=== PATIENT | female | born 1960 | race Caucasian/White ===

== ENCOUNTER 2020-05-25 18:53 | Inpatient (IN) | payer BC, OTHER ==
--- NOTE | 2020-05-25 19:47 | EDM.PDOC ---
ED HPI GENERAL MEDICAL PROBLEM - General Chief Complaint: Respiratory Problem Stated Complaint: COVID Time Seen by Provider: 05/25/20 19:43 - History of Present Illness INITIAL COMMENTS - FREE TEXT/NARRATIVE: 59-year-old female presents the emergency room in a known positive COVID state. Today the patient became more short of breath and ran a fever little higher than 103 at home. She has a little bit of a cough mostly nonproductive that she is noticed some intermittent vomiting and loose stools. She believes the vomiting is secondary to postnasal drip. Overall her most annoying symptom is her postnasal drip. Is currently treated for diabetes hyperlipidemia hypothyroidism and depression. Headache Pain Score (Numeric/FACES): 2 - Related Data Allergies Allergy/AdvReac Type Severity Reaction Status Date / Time enalaprilat [From Vasotec] Allergy Severe Cough Verified 05/25/20 19:22 Home Meds: Home Meds Allopurinol [Zyloprim] 100 mg PO DAILY 05/25/20 [History] Aspirin [Aspirin EC] 162 mg PO DAILY 05/25/20 [History] DULoxetine [Cymbalta] 60 mg PO DAILY 05/25/20 [History] Empagliflozin [Jardiance] 25 mg PO DAILY 05/25/20 [History] Levothyroxine [Synthroid] 100 mcg PO DAILY 05/25/20 [History] Liraglutide [Victoza] 1.8 ml INJECT DAILY 05/25/20 [History] Losartan/Hydrochlorothiazide [Losartan-HCTZ 50-12.5 MG] 1 tab PO DAILY 05/25/20 [History] Rosuvastatin [Crestor] 10 mg PO DAILY 05/25/20 [History] metFORMIN [Glucophage XR] 1,000 mg PO BID 05/25/20 [History] Past Medical History Cardiovascular History: Reports: High Cholesterol, Hypertension Musculoskeletal History: Reports: Fibromyalgia, Gout Endocrine/Metabolic History: Reports: Diabetes, Type II, Hypothyroidism - Infectious Disease History Infectious Disease History: Reports: Chicken Pox, Measles, Rubella, Shingles - Past Surgical History Cardiovascular Surgical History: Reports: Other (See Below) Other Cardiovascular Surgeries/Procedures: caraotoid test done recently Female Surgical History: Reports: Tubal Ligation Social & Family History - Tobacco Use Tobacco Use Status *Q: Never Tobacco User - Caffeine Use Caffeine Use: Reports: Soda Other Caffeine Use: diet - Recreational Drug Use Recreational Drug Use: No ED ROS GENERAL - Review of Systems Review Of Systems: See Below Constitutional: Reports: Fever, Chills, Weakness HEENT: Reports: Rhinitis, Sinus Problem Respiratory: Reports: Shortness of Breath, Cough. Denies: Pleuritic Chest Pain Cardiovascular: Denies: Chest Pain Endocrine: Reports: No Symptoms GI/Abdominal: Reports: Diarrhea, Nausea, Vomiting : Reports: No Symptoms Musculoskeletal: Reports: No Symptoms Skin: Reports: No Symptoms Neurological: Reports: No Symptoms ED EXAM, GENERAL - Physical Exam Exam: See Below Exam Limited By: No Limitations General Appearance: Alert, No Apparent Distress, Other (Her O2 saturation is in the mid to upper 80s on room air she is doing well on 2 L at this time. Mildly tachycardic. She gets a little lightheaded when standing and is orthostatic) Eye Exam: Bilateral Eye: Normal Inspection Ears: Normal External Exam, Normal Canal, Hearing Grossly Normal, Normal TMs Nose: Normal Inspection, Normal Mucosa, No Blood Throat/Mouth: Normal Inspection, Normal Lips, Normal Teeth, Normal Gums, Normal Oropharynx, Normal Voice, No Airway Compromise Head: Atraumatic, Normocephalic Neck: Normal Inspection, Supple. No: Lymphadenopathy (L), Lymphadenopathy (R) Respiratory/Chest: No Respiratory Distress, Crackles (Diffuse fine crackles right lateral chest) Cardiovascular: Regular Rate, Rhythm, No Edema, No Murmur GI/Abdominal: Normal Bowel Sounds, Soft, Non-Tender Back Exam: Normal Inspection. No: CVA Tenderness (L), CVA Tenderness (R) Psychiatric: Normal Affect, Normal Mood Skin Exam: Warm, Dry, Intact Course - Vital Signs Last Recorded V/S: Last Vital Signs Temp 37.8 C 05/25/20 19:29 Pulse 113 H 05/25/20 19:29 Resp 20 05/25/20 19:29 BP 127/63 05/25/20 19:29 Pulse Ox 88 L 05/25/20 19:29 - Orders/Labs/Meds Orders: Active Orders 24 hr Category Date Time Status EKG Documentation Completion [RC] STAT Care 05/25/20 19:44 Active Chest 1V Frontal [CR] Stat Exams 05/25/20 19:44 Ordered CBC WITH MANUAL DIFF [HEME] Stat Lab 05/25/20 20:08 Results Isolation [COMM] Routine Ot 05/25/20 19:46 Ordered Labs: Laboratory Tests 05/25/20 05/25/20 05/25/20 Range/Units 20:08 20:08 20:08 WBC 3.32 L (3.98-10.04) K/mm3 RBC 4.23 (3.98-5.22) M/mm3 Hgb 12.3 (11.2-15.7) gm/dl Hct 38.7 (34.1-44.9) % MCV 91.5 (79.4-94.8) fl MCH 29.1 (25.6-32.2) pg MCHC 31.8 L (32.2-35.5) g/dl RDW Std Deviation 48.3 H (36.4-46.3) fL Plt Count 84 L (182-369) K/mm3 MPV 11.9 (9.4-12.3) fl PT 12.0 H (9.7-11.7) SECONDS INR 1.12 D-Dimer, Quantitative 1.12 H (0.19-0.50) mg/L Sodium 135 L (136-145) mEq/L Potassium 4.1 (3.5-5.1) mEq/L Chloride 99 (98-107) mEq/L Carbon Dioxide 25 (21-32) mEq/L Anion Gap 15.1 H (5-15) BUN 12 (7-18) mg/dL Creatinine 1.0 (0.55-1.02) mg/dL Est Cr Clr Drug Dosing 55.31 mL/min Estimated GFR (MDRD) 56 (>60) mL/min BUN/Creatinine Ratio 12.0 L (14-18) Glucose 106 (80-115) mg/dL Calcium 8.2 L (8.5-10.1) mg/dL Ferritin (8-252) ng/ml Total Bilirubin 1.0 (0.2-1.0) mg/dL AST 82 H (15-37) U/L ALT 54 (14-59) U/L Alkaline Phosphatase 172 H (46-116) U/L Lactate Dehydrogenase 347 H (81-234) U/L Troponin I 0.031 (0.00-0.056) ng/mL C-Reactive Protein 2.4 H* (<1.0) mg/dL NT-Pro-B Natriuret Pep (0-125) pg/mL Total Protein 7.1 (6.4-8.2) g/dl Albumin 2.9 L (3.4-5.0) g/dl Globulin 4.2 gm/dL Albumin/Globulin Ratio 0.7 L (1-2) 05/25/20 05/25/20 Range/Units 20:08 20:08 WBC (3.98-10.04) K/mm3 RBC (3.98-5.22) M/mm3 Hgb (11.2-15.7) gm/dl Hct (34.1-44.9) % MCV (79.4-94.8) fl MCH (25.6-32.2) pg MCHC (32.2-35.5) g/dl RDW Std Deviation (36.4-46.3) fL Plt Count (182-369) K/mm3 MPV (9.4-12.3) fl PT (9.7-11.7) SECONDS INR D-Dimer, Quantitative (0.19-0.50) mg/L Sodium (136-145) mEq/L Potassium (3.5-5.1) mEq/L Chloride (98-107) mEq/L Carbon Dioxide (21-32) mEq/L Anion Gap (5-15) BUN (7-18) mg/dL Creatinine (0.55-1.02) mg/dL Est Cr Clr Drug Dosing mL/min Estimated GFR (MDRD) (>60) mL/min BUN/Creatinine Ratio (14-18) Glucose (80-115) mg/dL Calcium (8.5-10.1) mg/dL Ferritin 437 H (8-252) ng/ml Total Bilirubin (0.2-1.0) mg/dL AST (15-37) U/L ALT (14-59) U/L Alkaline Phosphatase (46-116) U/L Lactate Dehydrogenase (81-234) U/L Troponin I (0.00-0.056) ng/mL C-Reactive Protein (<1.0) mg/dL NT-Pro-B Natriuret Pep 119 (0-125) pg/mL Total Protein (6.4-8.2) g/dl Albumin (3.4-5.0) g/dl Globulin gm/dL Albumin/Globulin Ratio (1-2) - Re-Assessments/Exams Free Text/Narrative Re-Assessment/Exam: 05/25/20 21:[address] Dalal, our hospitalist with the work-up incomplete however with her hypoxia and risk factors the patient will be placed in the hospital. He would like us to hold off on IV fluids until he has reviewed all the labs. Departure - Departure Time of Disposition: 21:10 Disposition: Admitted As Inpatient 64 Clinical Impression: COVID-19, Hypoxia - Discharge Information Referrals: Sierra Silva, BEAM DYER [Primary Care Provider] - Forms: ED Department Discharge Sepsis Event Note (ED) - Evaluation Sepsis Screening Result: No Definite Risk - Focused Exam Vital Signs: Vital Signs Temp Pulse Resp BP Pulse Ox 05/25/20 19:29 37.8 C 113 H 20 127/63 88 L - My Orders Last 24 Hours: My Active Orders 05/25/20 19:44 EKG Documentation Completion [RC] STAT Chest 1V Frontal [CR] Stat 05/25/20 19:46 Isolation [COMM] Routine 05/25/20 20:08 CBC WITH MANUAL DIFF [HEME] Stat - Assessment/Plan Last 24 Hours: My Active Orders 05/25/20 19:44 EKG Documentation Completion [RC] STAT Chest 1V Frontal [CR] Stat 05/25/20 19:46 Isolation [COMM] Routine 05/25/20 20:08 CBC WITH MANUAL DIFF [HEME] Stat
[2020-05-25] MEDS ORDERED: Acetaminophen 325 MG Tab PO PRN (21:44)
[2020-05-25] MEDS ORDERED: Dexamethasone 4 MG Tab PO SCH (21:45)
[2020-05-25] MEDS ORDERED: 50% Dextrose in Water 50 ML Syringe IVPUSH PRN (21:46)
[2020-05-25] MEDS ORDERED: Glucagon,Human Recombinant 1 MG Vial IM PRN (21:46)
[2020-05-25] MEDS ORDERED: 50% Dextrose in Water 50 ML Syringe IV PRN (21:46)
--- NOTE | 2020-05-25 21:53 | PCM.HP.2 ---
H&P History of Present Illness - General Date of Service: 05/25/20 - History of Present Illness Initial Comments - Free Text/Narative: 59-year-old female with history of diabetes, hypertension, hypothyroidism, gout, and fibromyalgia presents to the emergency department after a fever today as high as 103.6. Patient was diagnosed with COVID-19 on May 19 after being swabbed on May 17. Symptoms of upper respiratory tract infection started on the . Her entire and child both were diagnosed with COVID-19. She has had worsening cough, nonproductive, and shortness of breath over the last day. Yesterday she had a fever of over 102. She has had some watery stools, intermittent vomiting, and postnasal drip. When she presented to the emergency department she was hypoxemic with oxygen saturation of 88% on room air. Patient is maintaining oxygen saturations above 90% on 2 L nasal cannula. Headache Pain Score (Numeric/FACES): 2 - Related Data Allergies/Adverse Reactions: Allergies Allergy/AdvReac Type Severity Reaction Status Date / Time enalaprilat [From Vasotec] Allergy Severe Cough Verified 05/25/20 19:22 Home Medications: Home Meds Allopurinol [Zyloprim] 100 mg PO DAILY 05/25/20 [History] Aspirin [Aspirin EC] 162 mg PO DAILY 05/25/20 [History] DULoxetine [Cymbalta] 60 mg PO DAILY 05/25/20 [History] Empagliflozin [Jardiance] 25 mg PO DAILY 05/25/20 [History] Levothyroxine [Synthroid] 100 mcg PO DAILY 05/25/20 [History] Liraglutide [Victoza] 1.8 ml INJECT DAILY 05/25/20 [History] Losartan/Hydrochlorothiazide [Losartan-HCTZ 50-12.5 MG] 1 tab PO DAILY 05/25/20 [History] Rosuvastatin [Crestor] 10 mg PO DAILY 05/25/20 [History] metFORMIN [Glucophage XR] 1,000 mg PO BID 05/25/20 [History] Past Medical History Cardiovascular History: Reports: High Cholesterol, Hypertension Musculoskeletal History: Reports: Fibromyalgia, Gout Other Musculoskeletal History: left 5th digit surgery Endocrine/Metabolic History: Reports: Diabetes, Type II, Hypothyroidism - Infectious Disease History Infectious Disease History: Reports: Chicken Pox, Measles, Rubella, Shingles - Past Surgical History Cardiovascular Surgical History: Reports: Other (See Below) Other Cardiovascular Surgeries/Procedures: caraotoid test done recently Female Surgical History: Reports: Tubal Ligation Social & Family History - Tobacco Use Tobacco Use Status *Q: Never Tobacco User - Caffeine Use Caffeine Use: Reports: Soda Other Caffeine Use: diet - Recreational Drug Use Recreational Drug Use: No H&P Review of Systems - Review of Systems: Review Of Systems: Comprehensive ROS is negative, except as noted in HPI. Exam - Exam Exam: See Below - Vital Signs Vital Signs: Last Vital Signs Temp 100.0 F 05/25/20 19:29 Pulse 113 H 05/25/20 19:29 Resp 20 05/25/20 19:29 BP 127/63 05/25/20 19:29 Pulse Ox 88 L 05/25/20 19:29 Orthostatic Blood Pressure [ 72/51 Standing] Orthostatic Blood Pressure [ 123/61 Supine] Weight: 97.522 kg - Exam Quality Assessment: Supplemental Oxygen General: Alert, Oriented, 4 HEENT: Conjunctiva Clear, Hearing Intact, Mucosa Moist & [place] Neck: Supple, Trachea Midline, 2 Lungs: Normal Respiratory Effort, Rales (Bibasilar worse on the right) Cardiovascular: Regular Rate, Regular Rhythm GI/Abdominal Exam: Normal Bowel Sounds, Soft, Non-Tender, No Organomegaly, No Distention, No Abnormal Bruit Back Exam: Normal Inspection Extremities: Normal Inspection, Normal Range of Motion, Non-Tender, No Pedal Edema, Normal Capillary Refill Peripheral Pulses: 2+: Posterior Tibial (L), Posterior Tibial (R), Dorsalis Pedis (L), Dorsalis Pedis (R) Skin: Warm, Dry, Intact Neurological: Cranial Nerves Intact Neuro Extensive - Mental Status: Alert, Oriented x3, Normal Mood/Affect, Normal Cognition, Memory Intact Psychiatric: Alert, Normal Affect, Normal Mood - Patient Data Lab Results Last 24 hrs: Laboratory Results - last 24 hr 05/25/20 05/25/20 05/25/20 Range/Units 20:08 20:08 20:08 WBC 3.32 L (3.98-10.04) K/mm3 RBC 4.23 (3.98-5.22) M/mm3 Hgb 12.3 (11.2-15.7) gm/dl Hct 38.7 (34.1-44.9) % MCV 91.5 (79.4-94.8) fl MCH 29.1 (25.6-32.2) pg MCHC 31.8 L (32.2-35.5) g/dl RDW Std Deviation 48.3 H (36.4-46.3) fL Plt Count 84 L (182-369) K/mm3 MPV 11.9 (9.4-12.3) fl Neutrophils % (Manual) 36 L (40-60) % Band Neutrophils % 0 (0-10) % Lymphocytes % (Manual) 44 H (20-40) % Atypical Lymphs % 2 % Monocytes % (Manual) 18 H (2-10) % Eosinophils % (Manual) 0 L (0.7-5.8) % Basophils % (Manual) 0 L (0.1-1.2) Platelet Estimate Decreased Plt Morphology Comment See note Polychromasia Few RBC Morph Comment Not Reportable PT 12.0 H (9.7-11.7) SECONDS INR 1.12 D-Dimer, Quantitative 1.12 H (0.19-0.50) mg/L Sodium 135 L (136-145) mEq/L Potassium 4.1 (3.5-5.1) mEq/L Chloride 99 (98-107) mEq/L Carbon Dioxide 25 (21-32) mEq/L Anion Gap 15.1 H (5-15) BUN 12 (7-18) mg/dL Creatinine 1.0 (0.55-1.02) mg/dL Est Cr Clr Drug Dosing 55.31 mL/min Estimated GFR (MDRD) 56 (>60) mL/min BUN/Creatinine Ratio 12.0 L (14-18) Glucose 106 (80-115) mg/dL Calcium 8.2 L (8.5-10.1) mg/dL Ferritin (8-252) ng/ml Total Bilirubin 1.0 (0.2-1.0) mg/dL AST 82 H (15-37) U/L ALT 54 (14-59) U/L Alkaline Phosphatase 172 H (46-116) U/L Lactate Dehydrogenase 347 H (81-234) U/L Troponin I 0.031 (0.00-0.056) ng/mL C-Reactive Protein 2.4 H* (<1.0) mg/dL NT-Pro-B Natriuret Pep (0-125) pg/mL Total Protein 7.1 (6.4-8.2) g/dl Albumin 2.9 L (3.4-5.0) g/dl Globulin 4.2 gm/dL Albumin/Globulin Ratio 0.7 L (1-2) 05/25/20 05/25/20 Range/Units 20:08 20:08 WBC (3.98-10.04) K/mm3 RBC (3.98-5.22) M/mm3 Hgb (11.2-15.7) gm/dl Hct (34.1-44.9) % MCV (79.4-94.8) fl MCH (25.6-32.2) pg MCHC (32.2-35.5) g/dl RDW Std Deviation (36.4-46.3) fL Plt Count (182-369) K/mm3 MPV (9.4-12.3) fl Neutrophils % (Manual) (40-60) % Band Neutrophils % (0-10) % Lymphocytes % (Manual) (20-40) % Atypical Lymphs % % Monocytes % (Manual) (2-10) % Eosinophils % (Manual) (0.7-5.8) % Basophils % (Manual) (0.1-1.2) Platelet Estimate Plt Morphology Comment Polychromasia RBC Morph Comment PT (9.7-11.7) SECONDS INR D-Dimer, Quantitative (0.19-0.50) mg/L Sodium (136-145) mEq/L Potassium (3.5-5.1) mEq/L Chloride (98-107) mEq/L Carbon Dioxide (21-32) mEq/L Anion Gap (5-15) BUN (7-18) mg/dL Creatinine (0.55-1.02) mg/dL Est Cr Clr Drug Dosing mL/min Estimated GFR (MDRD) (>60) mL/min BUN/Creatinine Ratio (14-18) Glucose (80-115) mg/dL Calcium (8.5-10.1) mg/dL Ferritin 437 H (8-252) ng/ml Total Bilirubin (0.2-1.0) mg/dL AST (15-37) U/L ALT (14-59) U/L Alkaline Phosphatase (46-116) U/L Lactate Dehydrogenase (81-234) U/L Troponin I (0.00-0.056) ng/mL C-Reactive Protein (<1.0) mg/dL NT-Pro-B Natriuret Pep 119 (0-125) pg/mL Total Protein (6.4-8.2) g/dl Albumin (3.4-5.0) g/dl Globulin gm/dL Albumin/Globulin Ratio (1-2) Result Diagrams: 05/25/20 20:08 05/25/20 20:08 Pablo Results Last 24 hrs: Microbiology 05/25/20 20:11 Influenza Type A Antigen Screen - Final Nasal, Unspecified NEGATIVE INFLUENZA A VIRUS AG REFERENCE RANGE: NEGATIVE Influenza Type B Antigen Screen - Final NEGATIVE INFLUENZA B VIRUS AG REFERENCE RANGE: NEGATIVE Imaging Impressions Last 24 hrs: Chest x-ray shows bilateral groundglass appearance consistent with viral pneumonia. Sepsis Event Note - Evaluation Sepsis Screening Result: No Definite Risk - Focused Exam Vital Signs: Vital Signs Temp Pulse Resp BP Pulse Ox 05/25/20 19:29 100.0 F 113 H 20 127/63 88 L - Problem List (1) Pneumonia due to COVID-19 virus SNOMED Code(s): 925227489170916166 ICD Code: U07.1 - COVID-19; J12.89 - OTHER VIRAL PNEUMONIA Status: Acute Current Visit: Yes (2) Diabetes SNOMED Code(s): 95728764 ICD Code: E11.9 - TYPE 2 DIABETES MELLITUS WITHOUT COMPLICATIONS Status: Acute Current Visit: Yes (3) HTN (hypertension) SNOMED Code(s): 21065856 ICD Code: I10 - ESSENTIAL (PRIMARY) HYPERTENSION Status: Acute Current Visit: Yes (4) Fibromyalgia SNOMED Code(s): 710596735 ICD Code: M79.7 - FIBROMYALGIA Status: Acute Current Visit: Yes (5) Hyperlipidemia SNOMED Code(s): 36811553 ICD Code: E78.5 - HYPERLIPIDEMIA, UNSPECIFIED Status: Acute Current Visit : Yes (6) Thrombocytopenia associated with COVID-19 SNOMED Code(s): 006952869 ICD Code: U07.1 - COVID-19; D69.59 - OTHER SECONDARY THROMBOCYTOPENIA Status: Acute Current Visit: Yes (7) Leukopenia SNOMED Code(s): 92539074, 806528904 ICD Code: D72.819 - DECREASED WHITE BLOOD CELL COUNT, UNSPECIFIED Status: Acute Current Visit: Yes (8) COVID-19 SNOMED Code(s): 363062995 ICD Code: U07.1 - COVID-19 Status: Acute Current Visit: Yes (9) Hypoxia SNOMED Code(s): 406092726 ICD Code: R09.02 - HYPOXEMIA Status: Acute Current Visit: Yes Problem List Initiated/Reviewed/Updated: Yes Orders Last 24hrs: Active Orders 24 hr Category Date Time Status Blood Glucose Check, Bedside [RC] QIDACANDBED Care 05/25/20 21:46 Ordered Cardiac Monitoring [RC] . DIRECTED Care 05/25/20 21:44 Ordered EKG Documentation Completion [RC] STAT Care 05/25/20 19:44 Active Nurse Communication: Isolation [RC] ASDIRECTED Care 05/25/20 21:46 Ordered RT Incentive Spirometry [RC] ASDIRECTED Care 05/25/20 21:44 Ordered Verify Patient Consent Obtain [RC] ASDIRECTED Care 05/25/20 21:44 Ordered Chest 1V Frontal [CR] Stat Exams 05/25/20 19:44 Ordered ABO/RH TYPE [BBK] Routine Lab 05/25/20 21:44 Ordered C-REACTIVE PROTEIN [CHEM] AM Lab 05/26/20 05:11 Ordered CBC WITH AUTO DIFF [HEME] AM Lab 05/26/20 05:11 Ordered CMP [COMPREHENSIVE METABOLIC PN,CMP] [CHEM] AM Lab 05/26/20 05:11 Ordered DD [D-DIMER QUANTITATIVE] [COAG] AM Lab 05/26/20 05:11 Ordered FRESH FROZEN PLASMA [BBK] Routine Lab 05/25/20 21:44 Ordered GLYCOSYLATED HEMOGLOBIN,HGBA1C [CHEM] AM Lab 05/26/20 05:11 Ordered MAGNESIUM [CHEM] AM Lab 05/26/20 05:11 Ordered PHOSPHORUS [CHEM] AM Lab 05/26/20 05:11 Ordered PROCALCITONIN [REF] Stat Lab 05/25/20 21:44 Ordered TSH [CHEM] AM Lab 05/26/20 05:11 Ordered Acetaminophen [TylenoL] Med 05/25/20 21:44 Ordered 650 mg PO Q4H PRN Alogliptin Benzoate [Alogliptin] Med 05/26/20 09:00 Ordered 25 mg PO DAILY Aspirin [Halfprin] Med 05/26/20 09:00 Ordered 162 mg PO DAILY DULoxetine Med 05/26/20 09:00 Ordered 60 mg PO DAILY Dextrose 50% in Water Med 05/25/20 21:46 Ordered 50 ml IV ASDIRECTED PRN Dextrose 50% in Water Med 05/25/20 21:46 Ordered 50 ml IVPUSH ASDIRECTED PRN Glucagon,Human Recombinant [GlucaGen] Med 05/25/20 21:46 Ordered 1 mg IM ASDIRECTED PRN Insulin Lispro [HumaLOG] Med 05/25/20 22:00 Ordered See Protocol SUBCUT QIDACANDBED Levothyroxine [Synthroid] Med 05/26/20 06:00 Ordered 100 mcg PO ACBREAKFAST Remdesivir (Eua) [Remdesivir (EUA)] 100 mg Med 05/26/20 09:00 Ordered Sodium Chloride 0.9% [Normal Saline] 100 ml IV DAILY Remdesivir (Eua) [Remdesivir (EUA)] 200 mg Med 05/25/20 21:44 Ordered Sodium Chloride 0.9% [Normal Saline] 250 ml IV ONETIME Rosuvastatin [Crestor] Med 05/26/20 09:00 Ordered 10 mg PO DAILY allopurinoL [Zyloprim] Med 05/26/20 09:00 Ordered 100 mg PO DAILY cefTRIAXone [Rocephin] 2 gm Med 05/25/20 22:00 Ordered Sodium Chloride 0.9% [Normal Saline] 100 ml IV Q24H dexAMETHasone Med 05/25/20 21:45 Ordered 6 mg PO DAILY Isolation [COMM] Routine Oth 05/25/20 19:46 Ordered Isolation [COMM] Stat Oth 05/25/20 21:44 Ordered RT Acapella [RESPCARE] Routine Oth 05/25/20 21:44 Ordered Transfuse Fresh Frozen Plasma [COMM] Routine Oth 05/25/20 21:44 Ordered Medication Orders Acetaminophen (Tylenol) 650 mg PO Q4H PRN PRN Reason: Fever Greater Than 101 Allopurinol (Zyloprim) 100 mg PO DAILY KRISTY Alogliptin Benzoate (Alogliptin) 25 mg PO DAILY KRISTY Aspirin (Halfprin) 162 mg PO DAILY KRISTY Dexamethasone (Dexamethasone) 6 mg PO DAILY KRISTY Stop: 06/03/20 09:01 Dextrose/Water (Dextrose 50% In Water) 50 ml IV ASDIRECTED PRN PRN Reason: Hypoglycemia Dextrose/Water (Dextrose 50% In Water) 50 ml IVPUSH ASDIRECTED PRN PRN Reason: Hypoglycemia Glucagon (Glucagen) 1 mg IM ASDIRECTED PRN PRN Reason: Hypoglycemia Remdesivir 200 mg/ Sodium (Chloride) 250 mls @ 250 mls/hr IV ONETIME ONE Stop: 05/25/20 21:45 Remdesivir 100 mg/ Sodium (Chloride) 100 mls @ 100 mls/hr IV DAILY KRISTY Stop: 05/29/20 09:59 Ceftriaxone Sodium 2 gm/ (Sodium Chloride) 100 mls @ 200 mls/hr IV Q24H KRISTY Insulin Human Lispro (Humalog) 0 unit SUBCUT QIDACANDBED KRISTY; Protocol Levothyroxine Sodium (Synthroid) 100 mcg PO ACBREAKFAST KRISTY Non-Formulary Medication (Duloxetine) 60 mg PO DAILY KRISTY Rosuvastatin Calcium (Crestor) 10 mg PO DAILY KRISTY Assessment/Plan Comment:: 59-year-old female with history of hypertension, obesity, and diabetes presents with worsening cough, shortness of breath, hypoxemia, and fever secondary to severe COVID-19. COVID-19 pneumonia * Patient is at increased risk for complications secondary to her underlying medical condition. Fortunately she is only on 2 L of oxygen via nasal cannula at this time. * She has been symptomatic for 8 days started on May 17, 2020 * Significant labs include WBC of 3.32, D-dimer 1.12, CRP 2.4, troponin 0 0.031, ferritin 437, proBNP normal at 119. * Patient was orthostatic and dizzy in the emergency department. Fluid resuscitation has to be done very carefully with patient's with COVID-19 secondary to potential for worsening respiratory status. At this time all encourage her to take orally and hold off on fluids. She did state that she does get dizzy when she does not take her Cymbalta and she was unable to take it today. She also did not take any of her blood pressure medications. * Elevated D-dimer is likely secondary to COVID-19 and not an acute VTE. Patient has no lower extremity symptoms or signs of a VTE and her respiratory status is most likely secondary to COVID-19 pneumonia. Thrombocytopenia * Platelet count is 84,000. Lovenox is contraindicated in patients with platelets under 100,000. Hypoalbuminemia * Albumin 2.9. This appears to be relatively common in Covid patients. Plan * Admit to medical floor with continuous pulse ox and telemetry. * Start COVID-19 treatment with remdesivir, convalescent plasma, and dexamethasone. * I spoke with [facility] to provide information about convalescent plasma and remdesivir. I offered the "fax sheet for patients and parents/caregivers, for COVID-19 convalescent plasma and remdesivir to read and review. I stated that therapy has been approved by an emergency use authorization process and has not fully been FDA reviewed or approved. I shared potential risks from the therapy including transmission of blood borne pathogen such as HIV and hepatitis C, allergic and transfusion related reactions, post transfusion purpura. Additionally theoretical risks include a phenomenon called antibody dependent enhancement of infection such as is seen in dengue or attenuation of an immune response that may make patients more susceptible to reinfection. I shared that the drug may cause l liver abnormalities and infusion related side effects. Additionally, other side effects are possible but are not known as the drug has limited studies. I discussed there are other potential treatment options that are currently not FDA approved to treat COVID-19. Offered opportunity to ask questions and all questions were answered. Patient voiced understanding and agreed to proceed with treatment. * Xarelto 10 mg daily for VTE prophylaxis. This should be continued for at least a total of 31 days. * Start Rocephin and azithromycin for possible community-acquired pneumonia. Concerns of community-acquired pneumonia with such a late onset of significant fevers and based on chest x-ray. Patient does have leukopenia. * Start alogliptin for treatment of Covid in diabetics. * Fingerstick blood sugar before meals and bedtime * Sliding scale insulin * Pepcid 20 mg twice daily. Some observational studies have found better outcomes in patients who are on Pepcid. * Hold losartan and hydrochlorothiazide * Diabetic diet * CBC, CMP, mag, phosphorus, D-dimer, CRP in the morning * If D-dimer continues to increase may consider CTA of the chest. * CODE STATUS: Full code - Mortality Measure Prognosis:: Good
[2020-05-25] MEDS ORDERED: oxyCODONE 5 MG Tab PO PRN (21:54)
[2020-05-25] MEDS ORDERED: Ondansetron 4 MG/2 ML SDV IV PRN (21:54)
[2020-05-25] MEDS ORDERED: cefTRIAXone 2 GM in Sodium Chloride 0.9% 100 ML IV SCH (22:00)
[2020-05-25] MEDS ORDERED: cefTRIAXone 2 GM in Sodium Chloride 0.9% 100 ML IV ONE (23:00)
[2020-05-25] MEDS ORDERED: Sodium Chloride 0.9% 100 ML IV SCH (23:00)
[2020-05-25] MEDS ORDERED: Dexamethasone 4 MG Tab PO ONE (23:15)
[2020-05-26] MEDS: cefTRIAXone 2 GM in Sodium Chloride 0.9% 100 ML IV SCH ×2 (02:41→21:36)
[2020-05-26] MEDS: Insulin Lispro 100 Units/ML 3 ML Vial SUBCUT SCH ×5 (03:46→21:59)
[2020-05-26] MEDS: Levothyroxine 100 MCG Tab PO SCH (06:32)
[2020-05-26 07:00] LABS: HEMOGLOBIN A1C 7.5 % (4.50-6.20)
[2020-05-26] MEDS ORDERED: REMDESIVIR (EUA) 100 MG in Sodium Chloride 0.9% 100 ML IV SCH (09:00)
[2020-05-26] MEDS: DULoxetine 30 MG Cap PO SCH (09:10)
[2020-05-26] MEDS: Aspirin 81 MG Tab.EC PO SCH (09:11)
--- NOTE | 2020-05-26 09:12 | PCM.PN ---
- General Info Date of Service: 05/26/20 Admission Dx/Problem (Free Text): Hypoxia, COVID-19 Subjective Update: The patient is a 59-year-old lady that was admitted on May 25, 2020 secondary to hypoxia, fever and COVID-19. Today patient says that she feels somewhat better. She is still on oxygen. The patient has denied any pain. Patient says that she is breathing better. Functional Status: Reports: Pain Controlled, Tolerating Diet - Review of Systems General: Reports: Weakness, Fatigue HEENT: Reports: No Symptoms Pulmonary: Reports: Shortness of Breath Cardiovascular: Reports: No Symptoms Gastrointestinal: Reports: No Symptoms Genitourinary: Reports: No Symptoms Musculoskeletal: Reports: No Symptoms Skin: Reports: No Symptoms Neurological: Reports: No Symptoms Psychiatric: Reports: No Symptoms - Patient Data Vitals - Most Recent: Last Vital Signs Temp 36.8 C 05/26/20 07:56 Pulse 94 05/26/20 07:56 Resp 16 05/26/20 07:56 BP 113/54 L 05/26/20 07:56 Pulse Ox 91 L 05/26/20 08:39 Orthostatic Blood Pressure [ 72/51 Standing] Orthostatic Blood Pressure [ 123/61 Supine] Weight - Most Recent: 96.751 kg I&O - Last 24 Hours: Intake & Output 05/25/20 05/26/20 05/26/20 22:59 06:59 14:59 Intake Total 216 Balance 216 Lab Results Last 24 Hours: Laboratory Results - last 24 hr 05/25/20 05/25/20 05/25/20 Range/Units 20:08 20:08 20:08 WBC 3.32 L (3.98-10.04) K/mm3 RBC 4.23 (3.98-5.22) M/mm3 Hgb 12.3 (11.2-15.7) gm/dl Hct 38.7 (34.1-44.9) % MCV 91.5 (79.4-94.8) fl MCH 29.1 (25.6-32.2) pg MCHC 31.8 L (32.2-35.5) g/dl RDW Std Deviation 48.3 H (36.4-46.3) fL Plt Count 84 L (182-369) K/mm3 MPV 11.9 (9.4-12.3) fl Neut % (Auto) (34.0-71.1) % Lymph % (Auto) (19.3-51.7) % [place] % (Auto) (4.7-12.5) % Eos % (Auto) (0.7-5.8) Baso % (Auto) (0.1-1.2) % Neut # (Auto) (1.56-6.13) K/mm3 Lymph # (Auto) (1.18-3.74) K/mm3 [place] # (Auto) (0.24-0.36) K/mm3 Eos # (Auto) (0.04-0.36) K/mm3 Baso # (Auto) (0.01-0.08) K/mm3 Neutrophils % (Manual) 36 L (40-60) % Band Neutrophils % 0 (0-10) % Lymphocytes % (Manual) 44 H (20-40) % Atypical Lymphs % 2 % Monocytes % (Manual) 18 H (2-10) % Eosinophils % (Manual) 0 L (0.7-5.8) % Basophils % (Manual) 0 L (0.1-1.2) Manual Slide Review Platelet Estimate Decreased Plt Morphology Comment See note Polychromasia Few RBC Morph Comment Not Reportable PT 12.0 H (9.7-11.7) SECONDS INR 1.12 D-Dimer, Quantitative 1.12 H (0.19-0.50) mg/L Sodium 135 L (136-145) mEq/L Potassium 4.1 (3.5-5.1) mEq/L Chloride 99 (98-107) mEq/L Carbon Dioxide 25 (21-32) mEq/L Anion Gap 15.1 H (5-15) BUN 12 (7-18) mg/dL Creatinine 1.0 (0.55-1.02) mg/dL Est Cr Clr Drug Dosing 55.31 mL/min Estimated GFR (MDRD) 56 (>60) mL/min BUN/Creatinine Ratio 12.0 L (14-18) Glucose 106 (80-115) mg/dL POC Glucose (80-115) mg/dL Hemoglobin A1c (4.50-6.20) % Calcium 8.2 L (8.5-10.1) mg/dL Phosphorus (2.6-4.7) mg/dL Magnesium (1.8-2.4) mg/dl Ferritin (8-252) ng/ml Total Bilirubin 1.0 (0.2-1.0) mg/dL AST 82 H (15-37) U/L ALT 54 (14-59) U/L Alkaline Phosphatase 172 H (46-116) U/L Lactate Dehydrogenase 347 H (81-234) U/L Troponin I 0.031 (0.00-0.056) ng/mL C-Reactive Protein 2.4 H* (<1.0) mg/dL NT-Pro-B Natriuret Pep (0-125) pg/mL Total Protein 7.1 (6.4-8.2) g/dl Albumin 2.9 L (3.4-5.0) g/dl Globulin 4.2 gm/dL Albumin/Globulin Ratio 0.7 L (1-2) TSH 3rd Generation (0.358-3.74) uIU/mL Blood Type 05/25/20 05/25/20 05/25/20 Range/Units 20:08 20:08 20:08 WBC (3.98-10.04) K/mm3 RBC (3.98-5.22) M/mm3 Hgb (11.2-15.7) gm/dl Hct (34.1-44.9) % MCV (79.4-94.8) fl MCH (25.6-32.2) pg MCHC (32.2-35.5) g/dl RDW Std Deviation (36.4-46.3) fL Plt Count (182-369) K/mm3 MPV (9.4-12.3) fl Neut % (Auto) (34.0-71.1) % Lymph % (Auto) (19.3-51.7) % [place] % (Auto) (4.7-12.5) % Eos % (Auto) (0.7-5.8) Baso % (Auto) (0.1-1.2) % Neut # (Auto) (1.56-6.13) K/mm3 Lymph # (Auto) (1.18-3.74) K/mm3 [place] # (Auto) (0.24-0.36) K/mm3 Eos # (Auto) (0.04-0.36) K/mm3 Baso # (Auto) (0.01-0.08) K/mm3 Neutrophils % (Manual) (40-60) % Band Neutrophils % (0-10) % Lymphocytes % (Manual) (20-40) % Atypical Lymphs % % Monocytes % (Manual) (2-10) % Eosinophils % (Manual) (0.7-5.8) % Basophils % (Manual) (0.1-1.2) Manual Slide Review Platelet Estimate Plt Morphology Comment Polychromasia RBC Morph Comment PT (9.7-11.7) SECONDS INR D-Dimer, Quantitative (0.19-0.50) mg/L Sodium (136-145) mEq/L Potassium (3.5-5.1) mEq/L Chloride (98-107) mEq/L Carbon Dioxide (21-32) mEq/L Anion Gap (5-15) BUN (7-18) mg/dL Creatinine (0.55-1.02) mg/dL Est Cr Clr Drug Dosing mL/min Estimated GFR (MDRD) (>60) mL/min BUN/Creatinine Ratio (14-18) Glucose (80-115) mg/dL POC Glucose (80-115) mg/dL Hemoglobin A1c (4.50-6.20) % Calcium (8.5-10.1) mg/dL Phosphorus (2.6-4.7) mg/dL Magnesium (1.8-2.4) mg/dl Ferritin 437 H (8-252) ng/ml Total Bilirubin (0.2-1.0) mg/dL AST (15-37) U/L ALT (14-59) U/L Alkaline Phosphatase (46-116) U/L Lactate Dehydrogenase (81-234) U/L Troponin I (0.00-0.056) ng/mL C-Reactive Protein (<1.0) mg/dL NT-Pro-B Natriuret Pep 119 (0-125) pg/mL Total Protein (6.4-8.2) g/dl Albumin (3.4-5.0) g/dl Globulin gm/dL Albumin/Globulin Ratio (1-2) TSH 3rd Generation (0.358-3.74) uIU/mL Blood Type A POSITIVE 05/26/20 05/26/20 05/26/20 Range/Units 04:28 04:28 04:28 WBC 3.51 L (3.98-10.04) K/mm3 RBC 3.67 L (3.98-5.22) M/mm3 Hgb 10.7 L D (11.2-15.7) gm/dl Hct 33.6 L (34.1-44.9) % MCV 91.6 (79.4-94.8) fl MCH 29.2 (25.6-32.2) pg MCHC 31.8 L (32.2-35.5) g/dl RDW Std Deviation 47.7 H (36.4-46.3) fL Plt Count 86 L (182-369) K/mm3 MPV 11.9 (9.4-12.3) fl Neut % (Auto) 27.9 L (34.0-71.1) % Lymph % (Auto) 40.5 (19.3-51.7) % [place] % (Auto) 29.6 H (4.7-12.5) % Eos % (Auto) 0 L (0.7-5.8) Baso % (Auto) 0.3 (0.1-1.2) % Neut # (Auto) 0.98 L (1.56-6.13) K/mm3 Lymph # (Auto) 1.42 (1.18-3.74) K/mm3 [place] # (Auto) 1.04 H (0.24-0.36) K/mm3 Eos # (Auto) 0.00 L (0.04-0.36) K/mm3 Baso # (Auto) 0.01 (0.01-0.08) K/mm3 Neutrophils % (Manual) (40-60) % Band Neutrophils % (0-10) % Lymphocytes % (Manual) (20-40) % Atypical Lymphs % % Monocytes % (Manual) (2-10) % Eosinophils % (Manual) (0.7-5.8) % Basophils % (Manual) (0.1-1.2) Manual Slide Review Abnormal smear Platelet Estimate Plt Morphology Comment Polychromasia RBC Morph Comment PT (9.7-11.7) SECONDS INR D-Dimer, Quantitative 1.12 H (0.19-0.50) mg/L Sodium 133 L (136-145) mEq/L Potassium 3.6 (3.5-5.1) mEq/L Chloride 98 (98-107) mEq/L Carbon Dioxide 21 (21-32) mEq/L Anion Gap 17.6 H (5-15) BUN 13 (7-18) mg/dL Creatinine 0.8 (0.55-1.02) mg/dL Est Cr Clr Drug Dosing 69.13 mL/min Estimated GFR (MDRD) > 60 (>60) mL/min BUN/Creatinine Ratio 16.3 (14-18) Glucose 115 (80-115) mg/dL POC Glucose (80-115) mg/dL Hemoglobin A1c (4.50-6.20) % Calcium 7.6 L (8.5-10.1) mg/dL Phosphorus 2.2 L (2.6-4.7) mg/dL Magnesium 1.8 (1.8-2.4) mg/dl Ferritin (8-252) ng/ml Total Bilirubin 1.1 H (0.2-1.0) mg/dL AST 89 H (15-37) U/L ALT 50 (14-59) U/L Alkaline Phosphatase 145 H (46-116) U/L Lactate Dehydrogenase (81-234) U/L Troponin I (0.00-0.056) ng/mL C-Reactive Protein 2.3 H* (<1.0) mg/dL NT-Pro-B Natriuret Pep (0-125) pg/mL Total Protein 6.5 (6.4-8.2) g/dl Albumin 2.7 L (3.4-5.0) g/dl Globulin 3.8 gm/dL Albumin/Globulin Ratio 0.7 L (1-2) TSH 3rd Generation 0.790 (0.358-3.74) uIU/mL Blood Type 05/26/20 05/26/20 Range/Units 04:28 06:42 WBC (3.98-10.04) K/mm3 RBC (3.98-5.22) M/mm3 Hgb (11.2-15.7) gm/dl Hct (34.1-44.9) % MCV (79.4-94.8) fl MCH (25.6-32.2) pg MCHC (32.2-35.5) g/dl RDW Std Deviation (36.4-46.3) fL Plt Count (182-369) K/mm3 MPV (9.4-12.3) fl Neut % (Auto) (34.0-71.1) % Lymph % (Auto) (19.3-51.7) % [place] % (Auto) (4.7-12.5) % Eos % (Auto) (0.7-5.8) Baso % (Auto) (0.1-1.2) % Neut # (Auto) (1.56-6.13) K/mm3 Lymph # (Auto) (1.18-3.74) K/mm3 [place] # (Auto) (0.24-0.36) K/mm3 Eos # (Auto) (0.04-0.36) K/mm3 Baso # (Auto) (0.01-0.08) K/mm3 Neutrophils % (Manual) (40-60) % Band Neutrophils % (0-10) % Lymphocytes % (Manual) (20-40) % Atypical Lymphs % % Monocytes % (Manual) (2-10) % Eosinophils % (Manual) (0.7-5.8) % Basophils % (Manual) (0.1-1.2) Manual Slide Review Platelet Estimate Plt Morphology Comment Polychromasia RBC Morph Comment PT (9.7-11.7) SECONDS INR D-Dimer, Quantitative (0.19-0.50) mg/L Sodium (136-145) mEq/L Potassium (3.5-5.1) mEq/L Chloride (98-107) mEq/L Carbon Dioxide (21-32) mEq/L Anion Gap (5-15) BUN (7-18) mg/dL Creatinine (0.55-1.02) mg/dL Est Cr Clr Drug Dosing mL/min Estimated GFR (MDRD) (>60) mL/min BUN/Creatinine Ratio (14-18) Glucose (80-115) mg/dL POC Glucose 134 H (80-115) mg/dL Hemoglobin A1c 7.50 H (4.50-6.20) % Calcium (8.5-10.1) mg/dL Phosphorus (2.6-4.7) mg/dL Magnesium (1.8-2.4) mg/dl Ferritin (8-252) ng/ml Total Bilirubin (0.2-1.0) mg/dL AST (15-37) U/L ALT (14-59) U/L Alkaline Phosphatase (46-116) U/L Lactate Dehydrogenase (81-234) U/L Troponin I (0.00-0.056) ng/mL C-Reactive Protein (<1.0) mg/dL NT-Pro-B Natriuret Pep (0-125) pg/mL Total Protein (6.4-8.2) g/dl Albumin (3.4-5.0) g/dl Globulin gm/dL Albumin/Globulin Ratio (1-2) TSH 3rd Generation (0.358-3.74) uIU/mL Blood Type Pablo Results Last 24 Hours: Microbiology 05/25/20 20:11 Influenza Type A Antigen Screen - Final Nasal, Unspecified NEGATIVE INFLUENZA A VIRUS AG REFERENCE RANGE: NEGATIVE Influenza Type B Antigen Screen - Final NEGATIVE INFLUENZA B VIRUS AG REFERENCE RANGE: NEGATIVE Med Orders - Current: Current Medications Acetaminophen (Tylenol) 650 mg PO Q4H PRN PRN Reason: Fever Greater Than 101 Allopurinol (Zyloprim) 100 mg PO DAILY [facility] Alogliptin Benzoate (Alogliptin) 25 mg PO DAILY [facility] Aspirin (Halfprin) 162 mg PO DAILY [facility] Dexamethasone (Dexamethasone) 6 mg PO DAILY@2300 [facility] Stop: 06/03/20 23:01 Dextrose/Water (Dextrose 50% In Water) 50 ml IV ASDIRECTED PRN PRN Reason: Hypoglycemia Dextrose/Water (Dextrose 50% In Water) 50 ml IVPUSH ASDIRECTED PRN PRN Reason: Hypoglycemia Duloxetine HCl (Cymbalta) 60 mg PO DAILY [facility] Glucagon (Glucagen) 1 mg IM ASDIRECTED PRN PRN Reason: Hypoglycemia Ceftriaxone Sodium 2 gm/ (Sodium Chloride) 100 mls @ 200 mls/hr IV BEDTIME [facility] Last Admin: 05/26/20 02:41 Dose: 200 mls/hr Documented by: Remdesivir 100 mg/ Sodium (Chloride) 100 mls @ 100 mls/hr IV Q24H [facility] Stop: 05/30/20 04:29 Insulin Human Lispro (Humalog) 0 unit SUBCUT QIDACANDBED [facility]; Protocol Last Admin: 05/26/20 07:42 Dose: Not Given Documented by: Levothyroxine Sodium (Synthroid) 100 mcg PO ACBREAKFAST [facility] Last Admin: 05/26/20 06:32 Dose: 100 mcg Documented by: Ondansetron HCl (Zofran) 4 mg IV Q4H PRN PRN Reason: Nausea/Vomiting Oxycodone HCl (Oxycodone) 5 mg PO Q4H PRN PRN Reason: Pain (moderate 4-6) Rivaroxaban (Xarelto) 10 mg PO DAILY [facility] Rosuvastatin Calcium (Crestor) 10 mg PO DAILY [facility] Discontinued Medications Dexamethasone (Dexamethasone) 6 mg PO ONETIME ONE Stop: 05/25/20 23:16 Last Admin: 05/26/20 02:23 Dose: 6 mg Documented by: Remdesivir 200 mg/ Sodium (Chloride) 250 mls @ 250 mls/hr IV ONETIME ONE Stop: 05/25/20 21:45 Last Admin: 05/26/20 03:22 Dose: 250 mls/hr Documented by: Remdesivir 100 mg/ Sodium (Chloride) 100 mls @ 100 mls/hr IV DAILY [facility] Stop: 05/29/20 09:59 Ceftriaxone Sodium 2 gm/ (Sodium Chloride) 100 mls @ 200 mls/hr IV Q24H KRISTY Sodium Chloride (Normal Saline) 100 mls @ 25 mls/hr IV ASDIRECTED [facility] Last Admin: 05/26/20 03:15 Dose: 25 mls/hr Documented by: - Exam Quality Assessment: Supplemental Oxygen General: Alert, Oriented, Cooperative HEENT: Pupils Equal, Pupils Reactive, EOMI, Mucous Membr. Moist/[place] Neck: Supple, Trachea Midline Lungs: Normal Respiratory Effort, Rales Cardiovascular: Regular Rate, Regular Rhythm GI/Abdominal Exam: Normal Bowel Sounds, Soft, Non-Tender, No Distention (Female) Exam: Deferred Back Exam: Normal Inspection, Full Range of Motion Extremities: Normal Inspection, Normal Range of Motion, No Pedal Edema Skin: Warm, Dry, Intact Neurological: No New Focal Deficit Psy/Mental Status: Alert, Normal Affect Sepsis Event Note - Evaluation Sepsis Screening Result: Severe Sepsis Risk - Focused Exam Vital Signs: Vital Signs Temp Pulse Pulse Resp BP BP Pulse Ox 05/26/20 08:39 05/26/20 07:56 36.8 C 94 16 113/54 L 90 L 05/26/20 06:43 36.9 C 05/26/20 04:19 37.8 C 104 H 20 122/52 L 89 L 05/26/20 04:12 37.8 C 105 H 20 122/52 L 89 L 05/26/20 03:59 38.0 C 103 H 20 121/59 L 90 L 05/26/20 03:57 38.0 C 102 H 20 121/59 L 90 L 05/26/20 03:37 38.9 C H 104 H 18 124/51 L 05/26/20 03:36 38.9 C H 105 H 18 124/51 L 90 L 05/26/20 03:31 38.9 C H 104 H 18 124/51 L 05/26/20 03:21 38.1 C 106 H 12 123/61 89 L 05/26/20 03:16 38.1 C 105 H 20 123/61 05/26/20 03:03 38.6 C H 107 H 20 117/51 L 90 L 05/26/20 03:01 38.6 C H 107 H 20 117/51 L 90 L 05/26/20 02:00 05/26/20 01:20 39.4 C H 114 H 22 H 123/54 L 90 L 05/26/20 00:24 112 H 20 116/51 L 91 L Pulse Ox 05/26/20 08:39 91 L 05/26/20 07:56 05/26/20 06:43 05/26/20 04:19 05/26/20 04:12 05/26/20 03:59 05/26/20 03:57 05/26/20 03:37 05/26/20 03:36 05/26/20 03:31 05/26/20 03:21 05/26/20 03:16 05/26/20 03:03 05/26/20 03:01 05/26/20 02:00 90 L 05/26/20 01:20 05/26/20 00:24 - Problem List & Annotations (1) Pneumonia due to COVID-19 virus SNOMED Code(s): 840592019791350802 Code(s): U07.1 - COVID-19; J12.89 - OTHER VIRAL PNEUMONIA Status: Acute Current Visit: Yes (2) Diabetes SNOMED Code(s): 48311188 Code(s): E11.9 - TYPE 2 DIABETES MELLITUS WITHOUT COMPLICATIONS Status: Acute Current Visit: Yes Qualifiers: Diabetes mellitus type: type 2 Diabetes mellitus associate doctor insulin use: without chcf use Diabetes mellitus complication status: without complication Qualified Code(s): E11.9 - Type 2 diabetes mellitus without complications (3) Thrombocytopenia associated with COVID-19 SNOMED Code(s): 494415778 Code(s): U07.1 - COVID-19; D69.59 - OTHER SECONDARY THROMBOCYTOPENIA Status: Acute Priority: High Current Visit: Yes - Problem List Review Problem List Initiated/Reviewed/Updated: Yes - Plan Plan:: 59-year-old female with history of hypertension, obesity, and diabetes presents with worsening cough, shortness of breath, hypoxemia, and fever secondary to severe COVID-19. COVID-19 pneumonia * Patient is at increased risk for complications secondary to her underlying medical condition. Fortunately she is only on 2 L of oxygen via nasal cannula at this time. * She has been symptomatic for 8 days started on May 17, 2020 * Significant labs include WBC of 3.32, D-dimer 1.12, CRP 2.4, troponin 0 0.031, ferritin 437, proBNP normal at 119. * Patient was orthostatic and dizzy in the emergency department. Fluid resuscitation has to be done very carefully with patient's with COVID-19 secondary to potential for worsening respiratory status. At this time all encourage her to take orally and hold off on fluids. She did state that she does get dizzy when she does not take her Cymbalta and she was unable to take it today. She also did not take any of her blood pressure medications. * Elevated D-dimer is likely secondary to COVID-19 and not an acute VTE. Patient has no lower extremity symptoms or signs of a VTE and her respiratory status is most likely secondary to COVID-19 pneumonia. Thrombocytopenia * Platelet count is 84,000. Lovenox is contraindicated in patients with platelets under 100,000. Hypoalbuminemia * Albumin 2.9. This appears to be relatively common in Covid patients. Plan * Admit to medical floor with continuous pulse ox and telemetry. * Start COVID-19 treatment with remdesivir, convalescent plasma, and dexamethasone. * I spoke with [facility] to provide information about convalescent plasma and remdesivir. I offered the "fax sheet for patients and parents/caregivers, for COVID-19 convalescent plasma and remdesivir to read and review. I stated that therapy has been approved by an emergency use authorization process and has not fully been FDA reviewed or approved. I shared potential risks from the therapy including transmission of blood borne pathogen such as HIV and hepatitis C, allergic and transfusion related reactions, post transfusion purpura. Additionally theoretical risks include a phenomenon called antibody dependent enhancement of infection such as is seen in dengue or attenuation of an immune response that may make patients more susceptible to reinfection. I shared that the drug may cause l liver abnormalities and infusion related side effects. Additionally, other side effects are possible but are not known as the drug has limited studies. I discussed there are other potential treatment options that are currently not FDA approved to treat COVID-19. Offered opportunity to ask questions and all questions were answered. Patient voiced understanding and agreed to proceed with treatment. * Xarelto 10 mg daily for VTE prophylaxis. This should be continued for at least a total of 31 days. * Start Rocephin and azithromycin for possible community-acquired pneumonia. Concerns of community-acquired pneumonia with such a late onset of significant fevers and based on chest x-ray. Patient does have leukopenia. * Start alogliptin for treatment of Covid in diabetics. * Fingerstick blood sugar before meals and bedtime * Sliding scale insulin * Pepcid 20 mg twice daily. Some observational studies have found better outcomes in patients who are on Pepcid. * Hold losartan and hydrochlorothiazide * Diabetic diet * CBC, CMP, mag, phosphorus, D-dimer, CRP in the morning * If D-dimer continues to increase may consider CTA of the chest. * CODE STATUS: Full code 05/26/2020 The patient will be kept on her Covid protocol. The patient has been encouraged to use incentive spirometer. She is also on a diabetic diet with sliding scale insulin. Her hypertension will be monitored with vital signs and if necessary add her antihypertensives. CBC, CMP, magnesium and phosphorus will be repeated. The patient's D-dimer has remained level will consider CT angiogram if needed. She is currently on DVT prophylaxis with the use of Xarelto. Patient also has been encouraged to ambulate. She should be appropriate for discharge after completion of COVID-19 protocol.
[2020-05-26] MEDS: Allopurinol 100 MG Tab PO SCH (09:13)
[2020-05-26] MEDS: Rosuvastatin 10 MG Tab PO SCH (09:13)
[2020-05-26] MEDS: Rivaroxaban 10 MG Tab PO SCH (09:14)
[2020-05-26] MEDS: Dexamethasone 4 MG Tab PO SCH (23:47)
[2020-05-27] MEDS: REMDESIVIR (EUA) 100 MG in Sodium Chloride 0.9% 100 ML IV SCH (04:13)
[2020-05-27] MEDS: Levothyroxine 100 MCG Tab PO SCH (05:31)
[2020-05-27] MEDS ORDERED: Levothyroxine 100 MCG Tab PO SCH (06:00)
--- NOTE | 2020-05-27 07:31 | PCM.PN ---
- General Info Date of Service: 05/27/20 Admission Dx/Problem (Free Text): Hypoxia, COVID-19 Subjective Update: The patient is a 59-year-old lady who was admitted secondary to hypoxia, fever and COVID-19. The patient is doing much better today. Her oxygen demands have improved significantly. The patient has been tolerating her diet. She also has been using her CPAP from home. Functional Status: Reports: Pain Controlled, Tolerating Diet - Review of Systems General: Reports: Weakness, Fatigue HEENT: Reports: No Symptoms Pulmonary: Reports: Shortness of Breath Cardiovascular: Reports: No Symptoms. Denies: Chest Pain Gastrointestinal: Reports: No Symptoms Genitourinary: Reports: No Symptoms Musculoskeletal: Reports: No Symptoms Skin: Reports: No Symptoms Neurological: Reports: No Symptoms Psychiatric: Reports: No Symptoms - Patient Data Vitals - Most Recent: Last Vital Signs Temp 36.2 C 05/27/20 04:16 Pulse 81 05/27/20 04:16 Resp 20 05/27/20 04:16 BP 119/59 L 05/27/20 04:16 Pulse Ox 92 L 05/27/20 06:53 Orthostatic Blood Pressure [ 72/51 Standing] Orthostatic Blood Pressure [ 123/61 Supine] Weight - Most Recent: 96.479 kg I&O - Last 24 Hours: Intake & Output 05/26/20 05/27/20 05/27/20 22:59 06:59 14:59 Intake Total 800 1000 Output Total 1800 800 Balance -1000 200 Lab Results Last 24 Hours: Laboratory Results - last 24 hr 05/25/20 05/26/20 05/26/20 Range/Units 20:08 04:28 11:31 Manual Slide Review Abnormal smear Sodium (136-145) mEq/L Potassium (3.5-5.1) mEq/L Chloride (98-107) mEq/L Carbon Dioxide (21-32) mEq/L Anion Gap (5-15) BUN (7-18) mg/dL Creatinine (0.55-1.02) mg/dL Est Cr Clr Drug Dosing mL/min Estimated GFR (MDRD) (>60) mL/min BUN/Creatinine Ratio (14-18) Glucose (80-115) mg/dL POC Glucose 183 H (80-115) mg/dL Calcium (8.5-10.1) mg/dL Total Bilirubin (0.2-1.0) mg/dL AST (15-37) U/L ALT (14-59) U/L Alkaline Phosphatase (46-116) U/L C-Reactive Protein (<1.0) mg/dL Total Protein (6.4-8.2) g/dl Albumin (3.4-5.0) g/dl Globulin gm/dL Albumin/Globulin Ratio (1-2) Procalcitonin 0.23 H (<0.10) ng/mL 05/26/20 05/26/20 05/27/20 Range/Units 16:31 21:54 05:38 Manual Slide Review Sodium (136-145) mEq/L Potassium (3.5-5.1) mEq/L Chloride (98-107) mEq/L Carbon Dioxide (21-32) mEq/L Anion Gap (5-15) BUN (7-18) mg/dL Creatinine (0.55-1.02) mg/dL Est Cr Clr Drug Dosing mL/min Estimated GFR (MDRD) (>60) mL/min BUN/Creatinine Ratio (14-18) Glucose (80-115) mg/dL POC Glucose 193 H 201 H 180 H (80-115) mg/dL Calcium (8.5-10.1) mg/dL Total Bilirubin (0.2-1.0) mg/dL AST (15-37) U/L ALT (14-59) U/L Alkaline Phosphatase (46-116) U/L C-Reactive Protein (<1.0) mg/dL Total Protein (6.4-8.2) g/dl Albumin (3.4-5.0) g/dl Globulin gm/dL Albumin/Globulin Ratio (1-2) Procalcitonin (<0.10) ng/mL 05/27/20 Range/Units 06:43 Manual Slide Review Sodium 140 (136-145) mEq/L Potassium 4.0 (3.5-5.1) mEq/L Chloride 105 (98-107) mEq/L Carbon Dioxide 21 (21-32) mEq/L Anion Gap 18.0 H (5-15) BUN 22 H (7-18) mg/dL Creatinine 0.7 (0.55-1.02) mg/dL Est Cr Clr Drug Dosing 79.01 mL/min Estimated GFR (MDRD) > 60 (>60) mL/min BUN/Creatinine Ratio 31.4 H (14-18) Glucose 203 H (80-115) mg/dL POC Glucose (80-115) mg/dL Calcium 8.4 L (8.5-10.1) mg/dL Total Bilirubin 0.7 (0.2-1.0) mg/dL AST 63 H (15-37) U/L ALT 54 (14-59) U/L Alkaline Phosphatase 151 H (46-116) U/L C-Reactive Protein 2.0 H* (<1.0) mg/dL Total Protein 7.1 (6.4-8.2) g/dl Albumin 2.8 L (3.4-5.0) g/dl Globulin 4.3 gm/dL Albumin/Globulin Ratio 0.7 L (1-2) Procalcitonin (<0.10) ng/mL Med Orders - Current: Current Medications Acetaminophen (Tylenol) 650 mg PO Q4H PRN PRN Reason: Fever Greater Than 101 Allopurinol (Zyloprim) 100 mg PO DAILY [facility] Last Admin: 05/26/20 09:13 Dose: 100 mg Documented by: Alogliptin Benzoate (Alogliptin) 25 mg PO DAILY [facility] Last Admin: 05/26/20 09:12 Dose: 25 mg Documented by: Aspirin (Halfprin) 162 mg PO DAILY [facility] Last Admin: 05/26/20 09:11 Dose: 162 mg Documented by: Dexamethasone (Dexamethasone) 6 mg PO DAILY@2300 [facility] Stop: 06/03/20 23:01 Last Admin: 05/26/20 23:47 Dose: 6 mg Documented by: Dextrose/Water (Dextrose 50% In Water) 50 ml IV ASDIRECTED PRN PRN Reason: Hypoglycemia Dextrose/Water (Dextrose 50% In Water) 50 ml IVPUSH ASDIRECTED PRN PRN Reason: Hypoglycemia Duloxetine HCl (Cymbalta) 60 mg PO DAILY [facility] Last Admin: 05/26/20 09:10 Dose: 60 mg Documented by: Glucagon (Glucagen) 1 mg IM ASDIRECTED PRN PRN Reason: Hypoglycemia Ceftriaxone Sodium 2 gm/ (Sodium Chloride) 100 mls @ 200 mls/hr IV BEDTIME [facility] Last Admin: 05/26/20 21:36 Dose: 200 mls/hr Documented by: Remdesivir 100 mg/ Sodium (Chloride) 100 mls @ 100 mls/hr IV Q24H [facility] Stop: 05/30/20 04:29 Last Admin: 05/27/20 04:13 Dose: 100 mls/hr Documented by: Insulin Human Lispro (Humalog) 0 unit SUBCUT QIDACANDBED [facility]; Protocol Last Admin: 05/26/20 21:59 Dose: 2 unit Documented by: Levothyroxine Sodium (Synthroid) 100 mcg PO ACBREAKFAST [facility] Last Admin: 05/27/20 05:31 Dose: 100 mcg Documented by: Non-Formulary Medication (Empagliflozin [Jardiance]) 25 mg PO DAILY [facility] Ondansetron HCl (Zofran) 4 mg IV Q4H PRN PRN Reason: Nausea/Vomiting Oxycodone HCl (Oxycodone) 5 mg PO Q4H PRN PRN Reason: Pain (moderate 4-6) Rivaroxaban (Xarelto) 10 mg PO DAILY [facility] Last Admin: 05/26/20 09:14 Dose: 10 mg Documented by: Rosuvastatin Calcium (Crestor) 10 mg PO DAILY [facility] Last Admin: 05/26/20 09:13 Dose: 10 mg Documented by: Discontinued Medications Dexamethasone (Dexamethasone) 6 mg PO ONETIME ONE Stop: 05/25/20 23:16 Last Admin: 05/26/20 02:23 Dose: 6 mg Documented by: Remdesivir 200 mg/ Sodium (Chloride) 250 mls @ 250 mls/hr IV ONETIME ONE Stop: 05/25/20 21:45 Last Admin: 05/26/20 03:22 Dose: 250 mls/hr Documented by: Remdesivir 100 mg/ Sodium (Chloride) 100 mls @ 100 mls/hr IV DAILY [facility] Stop: 05/29/20 09:59 Ceftriaxone Sodium 2 gm/ (Sodium Chloride) 100 mls @ 200 mls/hr IV Q24H [facility] Sodium Chloride (Normal Saline) 100 mls @ 25 mls/hr IV ASDIRECTED [facility] Last Admin: 05/26/20 03:15 Dose: 25 mls/hr Documented by: Levothyroxine Sodium (Synthroid) 100 mcg PO ACBREAKFAST [facility] - Exam Quality Assessment: Supplemental Oxygen General: Alert, Oriented, Cooperative HEENT: Pupils Equal, Pupils Reactive, EOMI Neck: Supple, Trachea Midline Lungs: Clear to Auscultation, Normal Respiratory Effort Cardiovascular: Regular Rate, Regular Rhythm GI/Abdominal Exam: Normal Bowel Sounds, Soft, No Distention (Female) Exam: Deferred Back Exam: Normal Inspection, Full Range of Motion Extremities: Normal Inspection, No Pedal Edema Skin: Warm, Dry, Intact Neurological: No New Focal Deficit Psy/Mental Status: Alert, Normal Affect Sepsis Event Note - Evaluation Sepsis Screening Result: No Definite Risk - Focused Exam Vital Signs: Vital Signs Temp Pulse Resp BP Pulse Ox Pulse Ox Pulse Ox 05/27/20 06:53 92 L 05/27/20 06:52 92 L 05/27/20 04:16 36.2 C 81 20 119/59 L 90 L 05/26/20 23:50 36.4 C 85 20 108/58 L 93 L 05/26/20 23:30 92 L 05/26/20 22:08 36.4 C 84 24 H 101/55 L 89 L - Problem List & Annotations (1) Pneumonia due to COVID-19 virus SNOMED Code(s): 143414971769585816 Code(s): U07.1 - COVID-19; J12.89 - OTHER VIRAL PNEUMONIA Status: Acute Current Visit: Yes (2) Diabetes SNOMED Code(s): 94017255 Code(s): E11.9 - TYPE 2 DIABETES MELLITUS WITHOUT COMPLICATIONS Status: Acute Current Visit: Yes Qualifiers: Diabetes mellitus type: type 2 Diabetes mellitus press tender long goods insulin use: without skilled nursing use Diabetes mellitus complication status: without complication Qualified Code(s): E11.9 - Type 2 diabetes mellitus without complications (3) Thrombocytopenia associated with COVID-19 SNOMED Code(s): 156104961 Code(s): U07.1 - COVID-19; D69.59 - OTHER SECONDARY THROMBOCYTOPENIA Status: Acute Priority: High Current Visit: Yes - Problem List Review Problem List Initiated/Reviewed/Updated: Yes - My Orders Last 24 Hours: My Active Orders 05/27/20 06:43 CBC WITH AUTO DIFF [HEME] AM D-DIMER QUANTITATIVE [COAG] AM 05/27/20 09:00 Empagliflozin [Jardiance] 25 mg PO DAILY - Plan Plan:: 59-year-old female with history of hypertension, obesity, and diabetes presents with worsening cough, shortness of breath, hypoxemia, and fever secondary to severe COVID-19. COVID-19 pneumonia * Patient is at increased risk for complications secondary to her underlying medical condition. Fortunately she is only on 2 L of oxygen via nasal cannula at this time. * She has been symptomatic for 8 days started on May 17, 2020 * Significant labs include WBC of 3.32, D-dimer 1.12, CRP 2.4, troponin 0 0.031, ferritin 437, proBNP normal at 119. * Patient was orthostatic and dizzy in the emergency department. Fluid resuscitation has to be done very carefully with patient's with COVID-19 secondary to potential for worsening respiratory status. At this time all encourage her to take orally and hold off on fluids. She did state that she does get dizzy when she does not take her Cymbalta and she was unable to take it today. She also did not take any of her blood pressure medications. * Elevated D-dimer is likely secondary to COVID-19 and not an acute VTE. Patient has no lower extremity symptoms or signs of a VTE and her respiratory status is most likely secondary to COVID-19 pneumonia. Thrombocytopenia * Platelet count is 84,000. Lovenox is contraindicated in patients with platelets under 100,000. Hypoalbuminemia * Albumin 2.9. This appears to be relatively common in Covid patients. Plan * Admit to medical floor with continuous pulse ox and telemetry. * Start COVID-19 treatment with remdesivir, convalescent plasma, and dexamethasone. * I spoke with [employer] to provide information about convalescent plasma and remdesivir. I offered the "fax sheet for patients and parents/caregivers, for COVID-19 convalescent plasma and remdesivir to read and review. I stated that therapy has been approved by an emergency use authorization process and has not fully been FDA reviewed or approved. I shared potential risks from the therapy including transmission of blood borne pathogen such as HIV and hepatitis C, allergic and transfusion related reactions, post transfusion purpura. Additionally theoretical risks include a phenomenon called antibody dependent enhancement of infection such as is seen in dengue or attenuation of an immune response that may make patients more susceptible to reinfection. I shared that the drug may cause l liver abnormalities and infusion related side effects. Additionally, other side effects are possible but are not known as the drug has limited studies. I discussed there are other potential treatment options that are currently not FDA approved to treat COVID-19. Offered opportunity to ask questions and all questions were answered. Patient voiced understanding and agreed to proceed with treatment. * Xarelto 10 mg daily for VTE prophylaxis. This should be continued for at least a total of 31 days. * Start Rocephin and azithromycin for possible community-acquired pneumonia. Concerns of community-acquired pneumonia with such a late onset of significant fevers and based on chest x-ray. Patient does have leukopenia. * Start alogliptin for treatment of Covid in diabetics. * Fingerstick blood sugar before meals and bedtime * Sliding scale insulin * Pepcid 20 mg twice daily. Some observational studies have found better outcomes in patients who are on Pepcid. * Hold losartan and hydrochlorothiazide * Diabetic diet * CBC, CMP, mag, phosphorus, D-dimer, CRP in the morning * If D-dimer continues to increase may consider CTA of the chest. * CODE STATUS: Full code 05/26/2020 The patient will be kept on her Covid protocol. The patient has been encouraged to use incentive spirometer. She is also on a diabetic diet with sliding scale insulin. Her hypertension will be monitored with vital signs and if necessary add her antihypertensives. CBC, CMP, magnesium and phosphorus will be repeated. The patient's D-dimer has remained level will consider CT angiogram if needed. She is currently on DVT prophylaxis with the use of Xarelto. Patient also has been encouraged to ambulate. She should be appropriate for discharge after completion of COVID-19 protocol. 05/27/2020 The patient will remain on Covid protocol. She has been tolerating the remdesivir as well as a dexamethasone. The patient has been advised that she will likely be appropriate for discharge after completion of remdesivir. The patient has been advised to ambulate. She has been restarted on her antihypertensive medications. She is to have a regular diabetic diet as tolerated. Patient is using Xarelto. If the patient's D-dimer remains elevated at discharge she will need to be on Xarelto. Repeat laboratory studies been ordered.
[2020-05-27] MEDS: Insulin Lispro 100 Units/ML 3 ML Vial SUBCUT SCH ×4 (08:05→21:36)
[2020-05-27] MEDS: Aspirin 81 MG Tab.EC PO SCH (08:09)
[2020-05-27] MEDS: DULoxetine 30 MG Cap PO SCH (08:09)
[2020-05-27] MEDS: Allopurinol 100 MG Tab PO SCH (08:09)
[2020-05-27] MEDS: Rosuvastatin 10 MG Tab PO SCH (08:10)
[2020-05-27] MEDS: Rivaroxaban 10 MG Tab PO SCH (08:10)
[2020-05-27] MEDS: EMPAGLIFLOZIN 25 MG PO SCH (08:10)
[2020-05-27] MEDS: cefTRIAXone 2 GM in Sodium Chloride 0.9% 100 ML IV SCH (21:36)
[2020-05-27] MEDS ORDERED: Melatonin 3 MG Tab PO PRN (21:55)
[2020-05-27] MEDS: Dexamethasone 4 MG Tab PO SCH (22:29)
[2020-05-28] MEDS: REMDESIVIR (EUA) 100 MG in Sodium Chloride 0.9% 100 ML IV SCH (02:39)
[2020-05-28] MEDS: Levothyroxine 100 MCG Tab PO SCH (06:34)
[2020-05-28] MEDS: Insulin Lispro 100 Units/ML 3 ML Vial SUBCUT SCH ×4 (07:51→20:59)
[2020-05-28] MEDS: Aspirin 81 MG Tab.EC PO SCH (09:37)
[2020-05-28] MEDS: Allopurinol 100 MG Tab PO SCH (09:37)
[2020-05-28] MEDS: DULoxetine 30 MG Cap PO SCH (09:37)
[2020-05-28] MEDS: EMPAGLIFLOZIN 25 MG PO SCH (09:38)
[2020-05-28] MEDS: Rivaroxaban 10 MG Tab PO SCH (09:38)
[2020-05-28] MEDS: Rosuvastatin 10 MG Tab PO SCH (09:38)
--- NOTE | 2020-05-28 10:20 | PCM.PN ---
- General Info Date of Service: 05/28/20 Admission Dx/Problem (Free Text): Hypoxia, COVID-19 Subjective Update: Patient is a 59-year-old lady who was admitted secondary to COVID-19. Today the patient says that she is feeling better with a Covid treatment protocol. The patient has been tolerating her diet. The patient's oxygen demands have increased. She says that she still feels somewhat short of breath. Functional Status: Reports: Pain Controlled, Tolerating Diet - Review of Systems General: Reports: Weakness, Fatigue HEENT: Reports: No Symptoms Pulmonary: Reports: Shortness of Breath, Cough Cardiovascular: Reports: Dyspnea on Exertion Gastrointestinal: Reports: No Symptoms Genitourinary: Reports: No Symptoms Musculoskeletal: Reports: No Symptoms Skin: Reports: No Symptoms Neurological: Reports: No Symptoms Psychiatric: Reports: No Symptoms - Patient Data Vitals - Most Recent: Last Vital Signs Temp 36.4 C 05/28/20 07:49 Pulse 75 05/28/20 07:49 Resp 20 05/28/20 07:49 BP 114/57 L 05/28/20 07:49 Pulse Ox 94 L 05/28/20 08:35 Orthostatic Blood Pressure [ 72/51 Standing] Orthostatic Blood Pressure [ 123/61 Supine] Weight - Most Recent: 96.116 kg I&O - Last 24 Hours: Intake & Output 05/27/20 05/28/20 05/28/20 22:59 06:59 14:59 Intake Total 2690 2600 Output Total 1600 2200 Balance 1090 400 Lab Results Last 24 Hours: Laboratory Results - last 24 hr 05/27/20 05/27/20 05/27/20 Range/Units 11:38 16:51 21:17 WBC (3.98-10.04) K/mm3 RBC (3.98-5.22) M/mm3 Hgb (11.2-15.7) gm/dl Hct (34.1-44.9) % MCV (79.4-94.8) fl MCH (25.6-32.2) pg MCHC (32.2-35.5) g/dl RDW Std Deviation (36.4-46.3) fL Plt Count (182-369) K/mm3 MPV (9.4-12.3) fl Neut % (Auto) (34.0-71.1) % Lymph % (Auto) (19.3-51.7) % [place] % (Auto) (4.7-12.5) % Eos % (Auto) (0.7-5.8) Baso % (Auto) (0.1-1.2) % Neut # (Auto) (1.56-6.13) K/mm3 Lymph # (Auto) (1.18-3.74) K/mm3 [place] # (Auto) (0.24-0.36) K/mm3 Eos # (Auto) (0.04-0.36) K/mm3 Baso # (Auto) (0.01-0.08) K/mm3 Manual Slide Review D-Dimer, Quantitative (0.19-0.50) mg/L Sodium (136-145) mEq/L Potassium (3.5-5.1) mEq/L Chloride (98-107) mEq/L Carbon Dioxide (21-32) mEq/L Anion Gap (5-15) BUN (7-18) mg/dL Creatinine (0.55-1.02) mg/dL Est Cr Clr Drug Dosing mL/min Estimated GFR (MDRD) (>60) mL/min BUN/Creatinine Ratio (14-18) Glucose (80-115) mg/dL POC Glucose 178 H 166 H 260 H (80-115) mg/dL Calcium (8.5-10.1) mg/dL Phosphorus (2.6-4.7) mg/dL Magnesium (1.8-2.4) mg/dl Total Bilirubin (0.2-1.0) mg/dL AST (15-37) U/L ALT (14-59) U/L Alkaline Phosphatase (46-116) U/L C-Reactive Protein (<1.0) mg/dL Total Protein (6.4-8.2) g/dl Albumin (3.4-5.0) g/dl Globulin gm/dL Albumin/Globulin Ratio (1-2) 05/28/20 05/28/20 05/28/20 Range/Units 05:15 05:15 05:15 WBC 6.58 (3.98-10.04) K/mm3 RBC 4.21 (3.98-5.22) M/mm3 Hgb 12.3 (11.2-15.7) gm/dl Hct 38.9 (34.1-44.9) % MCV 92.4 (79.4-94.8) fl MCH 29.2 (25.6-32.2) pg MCHC 31.6 L (32.2-35.5) g/dl RDW Std Deviation 48.9 H (36.4-46.3) fL Plt Count 117 L (182-369) K/mm3 MPV 12.5 H (9.4-12.3) fl Neut % (Auto) 68.8 (34.0-71.1) % Lymph % (Auto) 15.0 L (19.3-51.7) % [place] % (Auto) 11.7 (4.7-12.5) % Eos % (Auto) 0.2 L (0.7-5.8) Baso % (Auto) 0.2 (0.1-1.2) % Neut # (Auto) 4.53 (1.56-6.13) K/mm3 Lymph # (Auto) 0.99 L (1.18-3.74) K/mm3 [place] # (Auto) 0.77 H (0.24-0.36) K/mm3 Eos # (Auto) 0.01 L (0.04-0.36) K/mm3 Baso # (Auto) 0.01 (0.01-0.08) K/mm3 Manual Slide Review Normal smear D-Dimer, Quantitative 1.43 H (0.19-0.50) mg/L Sodium 140 (136-145) mEq/L Potassium 4.3 (3.5-5.1) mEq/L Chloride 106 (98-107) mEq/L Carbon Dioxide 20 L (21-32) mEq/L Anion Gap 18.3 H (5-15) BUN 23 H (7-18) mg/dL Creatinine 0.8 (0.55-1.02) mg/dL Est Cr Clr Drug Dosing 69.13 mL/min Estimated GFR (MDRD) > 60 (>60) mL/min BUN/Creatinine Ratio 28.8 H (14-18) Glucose 189 H (80-115) mg/dL POC Glucose (80-115) mg/dL Calcium 8.8 (8.5-10.1) mg/dL Phosphorus 3.8 (2.6-4.7) mg/dL Magnesium 2.2 (1.8-2.4) mg/dl Total Bilirubin 0.5 (0.2-1.0) mg/dL AST 52 H (15-37) U/L ALT 49 (14-59) U/L Alkaline Phosphatase 139 H (46-116) U/L C-Reactive Protein 1.5 H* (<1.0) mg/dL Total Protein 6.9 (6.4-8.2) g/dl Albumin 2.8 L (3.4-5.0) g/dl Globulin 4.1 gm/dL Albumin/Globulin Ratio 0.7 L (1-2) 05/28/20 Range/Units 06:36 WBC (3.98-10.04) K/mm3 RBC (3.98-5.22) M/mm3 Hgb (11.2-15.7) gm/dl Hct (34.1-44.9) % MCV (79.4-94.8) fl MCH (25.6-32.2) pg MCHC (32.2-35.5) g/dl RDW Std Deviation (36.4-46.3) fL Plt Count (182-369) K/mm3 MPV (9.4-12.3) fl Neut % (Auto) (34.0-71.1) % Lymph % (Auto) (19.3-51.7) % [place] % (Auto) (4.7-12.5) % Eos % (Auto) (0.7-5.8) Baso % (Auto) (0.1-1.2) % Neut # (Auto) (1.56-6.13) K/mm3 Lymph # (Auto) (1.18-3.74) K/mm3 [place] # (Auto) (0.24-0.36) K/mm3 Eos # (Auto) (0.04-0.36) K/mm3 Baso # (Auto) (0.01-0.08) K/mm3 Manual Slide Review D-Dimer, Quantitative (0.19-0.50) mg/L Sodium (136-145) mEq/L Potassium (3.5-5.1) mEq/L Chloride (98-107) mEq/L Carbon Dioxide (21-32) mEq/L Anion Gap (5-15) BUN (7-18) mg/dL Creatinine (0.55-1.02) mg/dL Est Cr Clr Drug Dosing mL/min Estimated GFR (MDRD) (>60) mL/min BUN/Creatinine Ratio (14-18) Glucose (80-115) mg/dL POC Glucose 183 H (80-115) mg/dL Calcium (8.5-10.1) mg/dL Phosphorus (2.6-4.7) mg/dL Magnesium (1.8-2.4) mg/dl Total Bilirubin (0.2-1.0) mg/dL AST (15-37) U/L ALT (14-59) U/L Alkaline Phosphatase (46-116) U/L C-Reactive Protein (<1.0) mg/dL Total Protein (6.4-8.2) g/dl Albumin (3.4-5.0) g/dl Globulin gm/dL Albumin/Globulin Ratio (1-2) Med Orders - Current: Current Medications Acetaminophen (Tylenol) 650 mg PO Q4H PRN PRN Reason: Fever Greater Than 101 Allopurinol (Zyloprim) 100 mg PO DAILY [facility] Last Admin: 05/28/20 09:37 Dose: 100 mg Documented by: Alogliptin Benzoate (Alogliptin) 25 mg PO DAILY [facility] Last Admin: 05/28/20 09:37 Dose: 25 mg Documented by: Aspirin (Halfprin) 162 mg PO DAILY [facility] Last Admin: 05/28/20 09:37 Dose: 162 mg Documented by: Dexamethasone (Dexamethasone) 6 mg PO DAILY@2300 [facility] Stop: 06/03/20 23:01 Last Admin: 05/27/20 22:29 Dose: 6 mg Documented by: Dextrose/Water (Dextrose 50% In Water) 50 ml IV ASDIRECTED PRN PRN Reason: Hypoglycemia Dextrose/Water (Dextrose 50% In Water) 50 ml IVPUSH ASDIRECTED PRN PRN Reason: Hypoglycemia Duloxetine HCl (Cymbalta) 60 mg PO DAILY [facility] Last Admin: 05/28/20 09:37 Dose: 60 mg Documented by: Glucagon (Glucagen) 1 mg IM ASDIRECTED PRN PRN Reason: Hypoglycemia Ceftriaxone Sodium 2 gm/ (Sodium Chloride) 100 mls @ 200 mls/hr IV BEDTIME [facility]ST[facility] Stop: 10/20/20 21:29 Last Admin: 05/27/20 21:36 Dose: 200 mls/hr Documented by: Remdesivir 100 mg/ Sodium (Chloride) 100 mls @ 100 mls/hr IV Q24H [facility] Stop: 05/30/20 04:29 Last Admin: 05/28/20 02:39 Dose: 100 mls/hr Documented by: Insulin Human Lispro (Humalog) 0 unit SUBCUT QIDACANDBED [facility]; Protocol Last Admin: 05/28/20 07:51 Dose: 1 unit Documented by: Levothyroxine Sodium (Synthroid) 100 mcg PO ACBREAKFAST [facility] Last Admin: 05/28/20 06:34 Dose: 100 mcg Documented by: Melatonin (Melatonin) 9 mg PO BEDTIME PRN PRN Reason: Sleep Last Admin: 05/27/20 22:30 Dose: 9 mg Documented by: Empagliflozin [ Jardiance] 25 Mg Own Med 25 mg PO DAILY [facility] Last Admin: 05/28/20 09:38 Dose: 25 mg Documented by: Ondansetron HCl (Zofran) 4 mg IV Q4H PRN PRN Reason: Nausea/Vomiting Oxycodone HCl (Oxycodone) 5 mg PO Q4H PRN PRN Reason: Pain (moderate 4-6) Rivaroxaban (Xarelto) 10 mg PO DAILY [facility] Last Admin: 05/28/20 09:38 Dose: 10 mg Documented by: Rosuvastatin Calcium (Crestor) 10 mg PO DAILY [facility] Last Admin: 05/28/20 09:38 Dose: 10 mg Documented by: Discontinued Medications Dexamethasone (Dexamethasone) 6 mg PO ONETIME ONE Stop: 05/25/20 23:16 Last Admin: 05/26/20 02:23 Dose: 6 mg Documented by: Remdesivir 200 mg/ Sodium (Chloride) 250 mls @ 250 mls/hr IV ONETIME ONE Stop: 05/25/20 21:45 Last Admin: 05/26/20 03:22 Dose: 250 mls/hr Documented by: Remdesivir 100 mg/ Sodium (Chloride) 100 mls @ 100 mls/hr IV DAILY [facility] Stop: 05/29/20 09:59 Ceftriaxone Sodium 2 gm/ (Sodium Chloride) 100 mls @ 200 mls/hr IV Q24H [facility] Sodium Chloride (Normal Saline) 100 mls @ 25 mls/hr IV ASDIRECTED [facility] Last Admin: 05/26/20 03:15 Dose: 25 mls/hr Documented by: Levothyroxine Sodium (Synthroid) 100 mcg PO ACBREAKFAST [facility]ST[facility] - Exam Quality Assessment: Supplemental Oxygen General: Alert, Oriented, Cooperative HEENT: Pupils Equal, Pupils Reactive Neck: Supple, Trachea Midline Lungs: Normal Respiratory Effort, Crackles Cardiovascular: Regular Rate, Regular Rhythm GI/Abdominal Exam: Normal Bowel Sounds, Soft, Non-Tender, No Distention (Female) Exam: Deferred Back Exam: Normal Inspection, Full Range of Motion Extremities: Normal Inspection, No Pedal Edema Skin: Warm, Dry, Intact Neurological: No New Focal Deficit Psy/Mental Status: Alert, Normal Affect Sepsis Event Note - Evaluation Sepsis Screening Result: No Definite Risk - Focused Exam Vital Signs: Vital Signs Temp Pulse Pulse Resp BP Pulse Ox Pulse Ox 05/28/20 08:35 94 L 05/28/20 07:49 36.4 C 75 20 114/57 L 94 L 05/28/20 03:48 36.4 C 79 13 121/61 92 L 05/28/20 00:00 76 93 L - Problem List & Annotations (1) Pneumonia due to COVID-19 virus SNOMED Code(s): 552559410171282453 Code(s): U07.1 - COVID-19; J12.89 - OTHER VIRAL PNEUMONIA Status: Acute Current Visit: Yes (2) Diabetes SNOMED Code(s): 79294414 Code(s): E11.9 - TYPE 2 DIABETES MELLITUS WITHOUT COMPLICATIONS Status: Acute Current Visit: Yes Qualifiers: Diabetes mellitus type: type 2 Diabetes mellitus manager terminal insulin use: without manager terminal use Diabetes mellitus complication status: without complication Qualified Code(s): E11.9 - Type 2 diabetes mellitus without complications (3) Thrombocytopenia associated with COVID-19 SNOMED Code(s): 411323575 Code(s): U07.1 - COVID-19; D69.59 - OTHER SECONDARY THROMBOCYTOPENIA Status: Acute Priority: High Current Visit: Yes - Problem List Review Problem List Initiated/Reviewed/Updated: Yes - My Orders Last 24 Hours: My Active Orders 05/27/20 21:55 Melatonin 9 mg PO BEDTIME PRN - Plan Plan:: 59-year-old female with history of hypertension, obesity, and diabetes presents with worsening cough, shortness of breath, hypoxemia, and fever secondary to severe COVID-19. COVID-19 pneumonia * Patient is at increased risk for complications secondary to her underlying medical condition. Fortunately she is only on 2 L of oxygen via nasal cannula at this time. * She has been symptomatic for 8 days started on May 17, 2020 * Significant labs include WBC of 3.32, D-dimer 1.12, CRP 2.4, troponin 0 0.031, ferritin 437, proBNP normal at 119. * Patient was orthostatic and dizzy in the emergency department. Fluid resuscitation has to be done very carefully with patient's with COVID-19 secondary to potential for worsening respiratory status. At this time all encourage her to take orally and hold off on fluids. She did state that she does get dizzy when she does not take her Cymbalta and she was unable to take it today. She also did not take any of her blood pressure medications. * Elevated D-dimer is likely secondary to COVID-19 and not an acute VTE. Patient has no lower extremity symptoms or signs of a VTE and her respiratory status is most likely secondary to COVID-19 pneumonia. Thrombocytopenia * Platelet count is 84,000. Lovenox is contraindicated in patients with platelets under 100,000. Hypoalbuminemia * Albumin 2.9. This appears to be relatively common in Covid patients. Plan * Admit to medical floor with continuous pulse ox and telemetry. * Start COVID-19 treatment with remdesivir, convalescent plasma, and dexamethasone. * I spoke with [facility] to provide information about convalescent plasma and remdesivir. I offered the "fax sheet for patients and parents/caregivers, for COVID-19 convalescent plasma and remdesivir to read and review. I stated that therapy has been approved by an emergency use authorization process and has not fully been FDA reviewed or approved. I shared potential risks from the therapy including transmission of blood borne pathogen such as HIV and hepatitis C, allergic and transfusion related reactions, post transfusion purpura. Additionally theoretical risks include a phenomenon called antibody dependent enhancement of infection such as is seen in dengue or attenuation of an immune response that may make patients more susceptible to reinfection. I shared that the drug may cause l liver abnormalities and infusion related side effects. Additionally, other side effects are possible but are not known as the drug has limited studies. I discussed there are other potential treatment options that are currently not FDA approved to treat COVID-19. Offered opportunity to ask questions and all questions were answered. Patient voiced understanding and agreed to proceed with treatment. * Xarelto 10 mg daily for VTE prophylaxis. This should be continued for at least a total of 31 days. * Start Rocephin and azithromycin for possible community-acquired pneumonia. Concerns of community-acquired pneumonia with such a late onset of significant fevers and based on chest x-ray. Patient does have leukopenia. * Start alogliptin for treatment of Covid in diabetics. * Fingerstick blood sugar before meals and bedtime * Sliding scale insulin * Pepcid 20 mg twice daily. Some observational studies have found better outcomes in patients who are on Pepcid. * Hold losartan and hydrochlorothiazide * Diabetic diet * CBC, CMP, mag, phosphorus, D-dimer, CRP in the morning * If D-dimer continues to increase may consider CTA of the chest. * CODE STATUS: Full code 05/26/2020 The patient will be kept on her Covid protocol. The patient has been encouraged to use incentive spirometer. She is also on a diabetic diet with sliding scale insulin. Her hypertension will be monitored with vital signs and if necessary add her antihypertensives. CBC, CMP, magnesium and phosphorus will be repeated. The patient's D-dimer has remained level will consider CT angiogram if needed. She is currently on DVT prophylaxis with the use of Xarelto. Patient also has b een encouraged to ambulate. She should be appropriate for discharge after completion of COVID-19 protocol. 05/27/2020 The patient will remain on Covid protocol. She has been tolerating the remdesivir as well as a dexamethasone. The patient has been advised that she will likely be appropriate for discharge after completion of remdesivir. The patient has been advised to ambulate. She has been restarted on her antihypertensive medications. She is to have a regular diabetic diet as tolerated. Patient is using Xarelto. If the patient's D-dimer remains elevated at discharge she will need to be on Xarelto. Repeat laboratory studies been ordered. 05/28/2020 The patient is currently on COVID-19 protocol. She has been doing well. The p atient has been recommended continue with her diabetic diet. She is currently on an insulin sliding scale. Repeat laboratory studies have been ordered. If the patient's D-dimer is elevated she will likely need to have 1 months worth of Xarelto. The patient is currently in a full CODE STATUS. She should be appropriate for discharge in 1 to 2 days.
[2020-05-28] MEDS ORDERED: Sodium Chloride 0.65% Nasal Spray 45 ML Bottle NASBOTH PRN (13:09)
[2020-05-28] MEDS: cefTRIAXone 2 GM in Sodium Chloride 0.9% 100 ML IV SCH (20:55)
[2020-05-28] MEDS: Dexamethasone 4 MG Tab PO SCH (21:37)
[2020-05-29] MEDS: Dexamethasone 4 MG Tab PO SCH ×2 (01:35→22:00)
[2020-05-29] MEDS: REMDESIVIR (EUA) 100 MG in Sodium Chloride 0.9% 100 ML IV SCH (02:34)
[2020-05-29] MEDS: Levothyroxine 100 MCG Tab PO SCH (05:29)
[2020-05-29] MEDS: Insulin Lispro 100 Units/ML 3 ML Vial SUBCUT SCH ×4 (08:14→21:12)
[2020-05-29] MEDS: Allopurinol 100 MG Tab PO SCH (08:18)
[2020-05-29] MEDS: Rosuvastatin 10 MG Tab PO SCH (08:18)
[2020-05-29] MEDS: Rivaroxaban 10 MG Tab PO SCH (08:18)
[2020-05-29] MEDS: Aspirin 81 MG Tab.EC PO SCH (08:18)
[2020-05-29] MEDS: DULoxetine 30 MG Cap PO SCH (08:18)
[2020-05-29] MEDS: EMPAGLIFLOZIN 25 MG PO SCH (08:18)
--- NOTE | 2020-05-29 09:55 | PCM.PN ---
- General Info Date of Service: 05/29/20 Admission Dx/Problem (Free Text): Hypoxia, COVID-19 Subjective Update: The patient is a 59-year-old lady who was admitted secondary to COVID-19. Patient says that she has been doing better although she feels short of breath. The patient is currently on oxygen. She has been tolerating her diet. The patient has denied any new pain. She has no other complaints today. Functional Status: Reports: Pain Controlled, Tolerating Diet - Review of Systems General: Reports: Fatigue HEENT: Reports: No Symptoms Pulmonary: Reports: Shortness of Breath, Cough Cardiovascular: Reports: No Symptoms Gastrointestinal: Reports: No Symptoms Genitourinary: Reports: No Symptoms Musculoskeletal: Reports: No Symptoms Skin: Reports: No Symptoms Neurological: Reports: No Symptoms Psychiatric: Reports: No Symptoms - Patient Data Vitals - Most Recent: Last Vital Signs Temp 36.6 C 05/29/20 02:33 Pulse 69 05/29/20 02:33 Resp 18 05/29/20 02:33 BP 125/87 05/29/20 02:33 Pulse Ox 95 05/29/20 08:22 Orthostatic Blood Pressure [ 72/51 Standing] Orthostatic Blood Pressure [ 123/61 Supine] Weight - Most Recent: 97.159 kg I&O - Last 24 Hours: Intake & Output 05/28/20 05/29/20 05/29/20 22:59 06:59 14:59 Intake Total 2050 2600 Output Total 2800 2400 Balance -750 200 Lab Results Last 24 Hours: Laboratory Results - last 24 hr 05/28/20 05/28/20 05/28/20 Range/Units 12:02 17:05 20:54 WBC (3.98-10.04) K/mm3 RBC (3.98-5.22) M/mm3 Hgb (11.2-15.7) gm/dl Hct (34.1-44.9) % MCV (79.4-94.8) fl MCH (25.6-32.2) pg MCHC (32.2-35.5) g/dl RDW Std Deviation (36.4-46.3) fL Plt Count (182-369) K/mm3 MPV (9.4-12.3) fl Neut % (Auto) (34.0-71.1) % Lymph % (Auto) (19.3-51.7) % [place] % (Auto) (4.7-12.5) % Eos % (Auto) (0.7-5.8) Baso % (Auto) (0.1-1.2) % Neut # (Auto) (1.56-6.13) K/mm3 Lymph # (Auto) (1.18-3.74) K/mm3 [place] # (Auto) (0.24-0.36) K/mm3 Eos # (Auto) (0.04-0.36) K/mm3 Baso # (Auto) (0.01-0.08) K/mm3 Manual Slide Review D-Dimer, Quantitative (0.19-0.50) mg/L Sodium (136-145) mEq/L Potassium (3.5-5.1) mEq/L Chloride (98-107) mEq/L Carbon Dioxide (21-32) mEq/L Anion Gap (5-15) BUN (7-18) mg/dL Creatinine (0.55-1.02) mg/dL Est Cr Clr Drug Dosing mL/min Estimated GFR (MDRD) (>60) mL/min BUN/Creatinine Ratio (14-18) Glucose (80-115) mg/dL POC Glucose 188 H 196 H 190 H (80-115) mg/dL Calcium (8.5-10.1) mg/dL Phosphorus (2.6-4.7) mg/dL Magnesium (1.8-2.4) mg/dl Total Bilirubin (0.2-1.0) mg/dL AST (15-37) U/L ALT (14-59) U/L Alkaline Phosphatase (46-116) U/L C-Reactive Protein (<1.0) mg/dL Total Protein (6.4-8.2) g/dl Albumin (3.4-5.0) g/dl Globulin gm/dL Albumin/Globulin Ratio (1-2) 05/29/20 05/29/20 05/29/20 Range/Units 04:33 04:33 04:33 WBC 6.08 (3.98-10.04) K/mm3 RBC 4.18 (3.98-5.22) M/mm3 Hgb 12.2 (11.2-15.7) gm/dl Hct 38.8 (34.1-44.9) % MCV 92.8 (79.4-94.8) fl MCH 29.2 (25.6-32.2) pg MCHC 31.4 L (32.2-35.5) g/dl RDW Std Deviation 49.9 H (36.4-46.3) fL Plt Count 127 L (182-369) K/mm3 MPV 12.5 H (9.4-12.3) fl Neut % (Auto) 67.8 (34.0-71.1) % Lymph % (Auto) 17.9 L (19.3-51.7) % [place] % (Auto) 9.7 (4.7-12.5) % Eos % (Auto) 0 L (0.7-5.8) Baso % (Auto) 0.2 (0.1-1.2) % Neut # (Auto) 4.12 (1.56-6.13) K/mm3 Lymph # (Auto) 1.09 L (1.18-3.74) K/mm3 [place] # (Auto) 0.59 H (0.24-0.36) K/mm3 Eos # (Auto) 0.00 L (0.04-0.36) K/mm3 Baso # (Auto) 0.01 (0.01-0.08) K/mm3 Manual Slide Review Normal smear D-Dimer, Quantitative 1.01 H (0.19-0.50) mg/L Sodium 140 (136-145) mEq/L Potassium 4.6 (3.5-5.1) mEq/L Chloride 107 (98-107) mEq/L Carbon Dioxide 20 L (21-32) mEq/L Anion Gap 17.6 H (5-15) BUN 26 H (7-18) mg/dL Creatinine 0.8 (0.55-1.02) mg/dL Est Cr Clr Drug Dosing 69.13 mL/min Estimated GFR (MDRD) > 60 (>60) mL/min BUN/Creatinine Ratio 32.5 H (14-18) Glucose 200 H (80-115) mg/dL POC Glucose (80-115) mg/dL Calcium 9.0 (8.5-10.1) mg/dL Phosphorus 4.5 (2.6-4.7) mg/dL Magnesium 2.1 (1.8-2.4) mg/dl Total Bilirubin 0.6 (0.2-1.0) mg/dL AST 65 H (15-37) U/L ALT 60 H (14-59) U/L Alkaline Phosphatase 148 H (46-116) U/L C-Reactive Protein 1.4 H* (<1.0) mg/dL Total Protein 6.9 (6.4-8.2) g/dl Albumin 2.8 L (3.4-5.0) g/dl Globulin 4.1 gm/dL Albumin/Globulin Ratio 0.7 L (1-2) Med Orders - Current: Current Medications Acetaminophen (Tylenol) 650 mg PO Q4H PRN PRN Reason: Fever Greater Than 101 Allopurinol (Zyloprim) 100 mg PO DAILY [facility] Last Admin: 05/29/20 08:18 Dose: 100 mg Documented by: Alogliptin Benzoate (Alogliptin) 25 mg PO DAILY [facility] Last Admin: 05/29/20 08:18 Dose: 25 mg Documented by: Aspirin (Halfprin) 162 mg PO DAILY [facility] Last Admin: 05/29/20 08:18 Dose: 162 mg Documented by: Dexamethasone (Dexamethasone) 6 mg PO DAILY@2300 [facility] Stop: 06/03/20 23:01 Last Admin: 05/29/20 01:35 Dose: Not Given Documented by: Dextrose/Water (Dextrose 50% In Water) 50 ml IV ASDIRECTED PRN PRN Reason: Hypoglycemia Dextrose/Water (Dextrose 50% In Water) 50 ml IVPUSH ASDIRECTED PRN PRN Reason: Hypoglycemia Duloxetine HCl (Cymbalta) 60 mg PO DAILY [facility] Last Admin: 05/29/20 08:18 Dose: 60 mg Documented by: Glucagon (Glucagen) 1 mg IM ASDIRECTED PRN PRN Reason: Hypoglycemia Ceftriaxone Sodium 2 gm/ (Sodium Chloride) 100 mls @ 200 mls/hr IV BEDTIME [facility] Stop: 05/29/20 21:29 Last Admin: 05/28/20 20:55 Dose: 200 mls/hr Documented by: Remdesivir 100 mg/ Sodium (Chloride) 100 mls @ 100 mls/hr IV Q24H [facility] Stop: 05/30/20 04:29 Last Admin: 05/29/20 02:34 Dose: 100 mls/hr Documented by: Insulin Human Lispro (Humalog) 0 unit SUBCUT QIDACANDBED [facility]; Protocol Last Admin: 05/29/20 08:14 Dose: 2 unit Documented by: Levothyroxine Sodium (Synthroid) 100 mcg PO ACBREAKFAST [facility] Last Admin: 05/29/20 05:29 Dose: 100 mcg Documented by: Melatonin (Melatonin) 9 mg PO BEDTIME PRN PRN Reason: Sleep Last Admin: 05/27/20 22:30 Dose: 9 mg Documented by: Empagliflozin [ Jardiance] 25 Mg Own Med 25 mg PO DAILY [facility] Last Admin: 05/29/20 08:18 Dose: 25 mg Documented by: Ondansetron HCl (Zofran) 4 mg IV Q4H PRN PRN Reason: Nausea/Vomiting Oxycodone HCl (Oxycodone) 5 mg PO Q4H PRN PRN Reason: Pain (moderate 4-6) Rivaroxaban (Xarelto) 10 mg PO DAILY [facility] Last Admin: 05/29/20 08:18 Dose: 10 mg Documented by: Rosuvastatin Calcium (Crestor) 10 mg PO DAILY [facility] Last Admin: 05/29/20 08:18 Dose: 10 mg Documented by: Sodium Chloride ([place] Nasal [place]) 0 ml NASBOTH Q2H PRN PRN Reason: nasal congestion Last Admin: 05/28/20 16:18 Dose: 1 spray Documented by: Discontinued Medications Dexamethasone (Dexamethasone) 6 mg PO ONETIME ONE Stop: 05/25/20 23:16 Last Admin: 05/26/20 02:23 Dose: 6 mg Documented by: Remdesivir 200 mg/ Sodium (Chloride) 250 mls @ 250 mls/hr IV ONETIME ONE Stop: 05/25/20 21:45 Last Admin: 05/26/20 03:22 Dose: 250 mls/hr Documented by: Remdesivir 100 mg/ Sodium (Chloride) 100 mls @ 100 mls/hr IV DAILY [facility] Stop: 05/29/20 09:59 Ceftriaxone Sodium 2 gm/ (Sodium Chloride) 100 mls @ 200 mls/hr IV Q24H [facility] Sodium Chloride (Normal Saline) 100 mls @ 25 mls/hr IV ASDIRECTED [facility] Last Admin: 05/26/20 03:15 Dose: 25 mls/hr Documented by: Levothyroxine Sodium (Synthroid) 100 mcg PO ACBREAKFAST KRISTY - Exam Quality Assessment: Supplemental Oxygen General: Alert, Oriented, Cooperative, No Acute Distress HEENT: Pupils Equal, Pupils Reactive, EOMI Neck: Supple, Trachea Midline Lungs: Clear to Auscultation, Normal Respiratory Effort Cardiovascular: Regular Rate, Regular Rhythm GI/Abdominal Exam: Normal Bowel Sounds, Soft, Non-Tender (Female) Exam: Deferred Back Exam: Normal Inspection, Full Range of Motion Extremities: Normal Inspection, No Pedal Edema Skin: Warm, Dry, Intact Neurological: No New Focal Deficit, Normal Gait Psy/Mental Status: Alert, Normal Affect, Normal Mood Sepsis Event Note - Evaluation Sepsis Screening Result: No Definite Risk - Focused Exam Vital Signs: Vital Signs Temp Pulse Resp BP Pulse Ox Pulse Ox 05/29/20 08:22 95 05/29/20 05:53 91 L 05/29/20 02:33 36.6 C 69 18 125/87 92 L 05/29/20 02:32 71 137/115 H 92 L 05/29/20 00:50 36.3 C 79 120/56 L 95 - Problem List & Annotations (1) Pneumonia due to COVID-19 virus SNOMED Code(s): 634254691052995867 Code(s): U07.1 - COVID-19; J12.89 - OTHER VIRAL PNEUMONIA Status: Acute Current Visit: Yes (2) Diabetes SNOMED Code(s): 94658743 Code(s): E11.9 - TYPE 2 DIABETES MELLITUS WITHOUT COMPLICATIONS Status: Acute Current Visit: Yes Qualifiers: Diabetes mellitus type: type 2 Diabetes mellitus correction insulin use: without roasterman use Diabetes mellitus complication status: without complication Qualified Code(s): E11.9 - Type 2 diabetes mellitus without complications (3) Thrombocytopenia associated with COVID-19 SNOMED Code(s): 649552224 Code(s): U07.1 - COVID-19; D69.59 - OTHER SECONDARY THROMBOCYTOPENIA Status: Acute Priority: High Current Visit: Yes - Problem List Review Problem List Initiated/Reviewed/Updated: Yes - My Orders Last 24 Hours: My Active Orders 05/28/20 13:09 Sodium Chloride 0.65% [[place] Nasal [place]] 0 ml NASBOTH Q2H PRN - Plan Plan:: 59-year-old female with history of hypertension, obesity, and diabetes presents with worsening cough, shortness of breath, hypoxemia, and fever secondary to severe COVID-19. COVID-19 pneumonia * Patient is at increased risk for complications secondary to her underlying medical condition. Fortunately she is only on 2 L of oxygen via nasal cannula at this time. * She has been symptomatic for 8 days started on May 17, 2020 * Significant labs include WBC of 3.32, D-dimer 1.12, CRP 2.4, troponin 0 0.031, ferritin 437, proBNP normal at 119. * Patient was orthostatic and dizzy in the emergency department. Fluid resuscitation has to be done very carefully with patient's with COVID-19 secondary to potential for worsening respiratory status. At this time all encourage her to take orally and hold off on fluids. She did state that she does get dizzy when she does not take her Cymbalta and she was unable to take it today. She also did not take any of her blood pressure medications. * Elevated D-dimer is likely secondary to COVID-19 and not an acute VTE. Patient has no lower extremity symptoms or signs of a VTE and her respiratory status is most likely secondary to COVID-19 pneumonia. Thrombocytopenia * Platelet count is 84,000. Lovenox is contraindicated in patients with platelets under 100,000. Hypoalbuminemia * Albumin 2.9. This appears to be relatively common in Covid patients. Plan * Admit to medical floor with continuous pulse ox and telemetry. * Start COVID-19 treatment with remdesivir, convalescent plasma, and dexamethasone. * I spoke with [employer] to provide information about convalescent plasma and remdesivir. I offered the "fax sheet for patients and parents/caregivers, for COVID-19 convalescent plasma and remdesivir to read and review. I stated that therapy has been approved by an emergency use authorization process and has not fully been FDA reviewed or approved. I shared potential risks from the therapy including transmission of blood borne pathogen such as HIV and hepatitis C, allergic and transfusion related reactions, post transfusion purpura. Additionally theoretical risks include a phenomenon called antibody dependent enhancement of infection such as is seen in dengue or attenuation of an immune response that may make patients more susceptible to reinfection. I shared that the drug may cause l liver abnormalities and infusion related side effects. Additionally, other side effects are possible but are not known as the drug has limited studies. I discussed there are other potential treatment options that are currently not FDA approved to treat COVID-19. Offered opportunity to ask questions and all questions were answered. Patient voiced understanding and agreed to proceed with treatment. * Xarelto 10 mg daily for VTE prophylaxis. This should be continued for at least a total of 31 days. * Start Rocephin and azithromycin for possible community-acquired pneumonia. Concerns of community-acquired pneumonia with such a late onset of significant fevers and based on chest x-ray. Patient does have leukopenia. * Start alogliptin for treatment of Covid in diabetics. * Fingerstick blood sugar before meals and bedtime * Sliding scale insulin * Pepcid 20 mg twice daily. Some observational studies have found better outcomes in patients who are on Pepcid. * Hold losartan and hydrochlorothiazide * Diabetic diet * CBC, CMP, mag, phosphorus, D-dimer, CRP in the morning * If D-dimer continues to increase may consider CTA of the chest. * CODE STATUS: Full code 05/26/2020 The patient will be kept on her Covid protocol. The patient has been encouraged to use incentive spirometer. She is also on a diabetic diet with sliding scale insulin. Her hypertension will be monitored with vital signs and if necessary add her antihypertensives. CBC, CMP, magnesium and phosphorus will be repeated. The patient's D-dimer has remained level will consider CT angiogram if needed. She is currently on DVT prophylaxis with the use of Xarelto. Patient also has been encouraged to ambulate. She should be appropriate for discharge after completion of COVID-19 protocol. 05/27/2020 The patient will remain on Covid protocol. She has been tolerating the remdes ivir as well as a dexamethasone. The patient has been advised that she will likely be appropriate for discharge after completion of remdesivir. The patient has been advised to ambulate. She has been restarted on her antihypertensive medications. She is to have a regular diabetic diet as tolerated. Patient is using Xarelto. If the patient's D-dimer remains elevated at discharge she will need to be on Xarelto. Repeat laboratory studies been ordered. 05/28/2020 The patient is currently on COVID-19 protocol. She has been doing well. The patient has been recommended continue with her diabetic diet. She is currently on an insulin sliding scale. Repeat laboratory studies have been ordered. If the patient's D-dimer is elevated she will likely need to have 1 months worth of Xarelto. The patient is currently in a full CODE STATUS. She should be appropriate for discharge in 1 to 2 days. 05/29/2020 The patient still remains on Covid protocol. Patient is doing well although she remains hypoxic on 2 L of oxygen. We will continue with her oxygen support. She is to also have her diabetic diet as tolerated. I have recommended that the patient ambulate in the room. Repeat laboratory studies have been ordered for the morning. I suspect that the patient should be able to go home tomorrow depending upon her oxygen demands.
[2020-05-29] MEDS: cefTRIAXone 2 GM in Sodium Chloride 0.9% 100 ML IV SCH (21:09)
[2020-05-30] MEDS: REMDESIVIR (EUA) 100 MG in Sodium Chloride 0.9% 100 ML IV SCH (04:11)
[2020-05-30] MEDS: Levothyroxine 100 MCG Tab PO SCH (05:57)
[2020-05-30] MEDS: Insulin Lispro 100 Units/ML 3 ML Vial SUBCUT SCH (06:48)
[2020-05-30] MEDS: Aspirin 81 MG Tab.EC PO SCH (08:18)
[2020-05-30] MEDS: Rivaroxaban 10 MG Tab PO SCH (08:18)
[2020-05-30] MEDS: Allopurinol 100 MG Tab PO SCH (08:19)
[2020-05-30] MEDS: DULoxetine 30 MG Cap PO SCH (08:19)
[2020-05-30] MEDS: EMPAGLIFLOZIN 25 MG PO SCH (08:19)
[2020-05-30] MEDS: Rosuvastatin 10 MG Tab PO SCH (08:19)
--- NOTE | 2020-05-30 08:59 | PCM.DCSUM1 ---
Discharge Summary - Hospital Course HPI Initial Comments: The patient was admitted secondary to COVID-19 and hypoxia. Diagnosis: Stroke: No - Discharge Data Discharge Date: 05/30/20 Discharge Disposition: Home, Self-Care 01 Condition: Good - Referral to Home Health Primary Care Physician: Sierra Silva NP - Discharge Diagnosis/Problem(s) (1) Pneumonia due to COVID-19 virus SNOMED Code(s): 732934606398326807 ICD Code: U07.1 - COVID-19; J12.89 - OTHER VIRAL PNEUMONIA Status: Resolved Current Visit: Yes (2) Diabetes SNOMED Code(s): 84105796 ICD Code: E11.9 - TYPE 2 DIABETES MELLITUS WITHOUT COMPLICATIONS Status: Chronic Current Visit: Yes Qualifiers: Diabetes mellitus type: type 2 Diabetes mellitus detention insulin use: without detention use Diabetes mellitus complication status: without complication Qualified Code(s): E11.9 - Type 2 diabetes mellitus without complications (3) Thrombocytopenia associated with COVID-19 SNOMED Code(s): 109724027 ICD Code: U07.1 - COVID-19; D69.59 - OTHER SECONDARY THROMBOCYTOPENIA Status: Resolved Priority: High Current Visit: Yes - Patient Summary/Data Hospital Course: The patient is a 59-year-old lady who was admitted to acute hospitalization on May 25, 2020 after presenting to the emergency department with a fever as high as 103.6. She was diagnosed with COVID-19 and was placed in hospitalization. The patient said that she had worsening cough. Also diarrhea accompanied. The patient had sick contacts with COVID-19 in her house. She was also noted to be hypoxic upon admission. The patient was started on remdesivir 200 mg IV x1 followed by 100 mg IV daily for 4 doses. The patient was also started on dexamethasone 6 mg IV daily and then transition to oral dexamethasone at 6 mg p.o. daily. The patient also had received 2 L of convalescent plasma to help with the treatment of her COVID-19. Patient tolerated these medications well. Upon admission the patient was noted to be leukopenic and her platelet count was also low. By day of discharge the patient's leukopenia had resolved. Her platelets were still low but adequate at 154,000. Patient was also noted to have a minimally elevated D-dimer. The patient had improved with the use of the COVID-19 protocol and her oxygen requirements have improved significantly. By day of discharge the patient was on room air. Further, the patient said that she could go home. The patient also has been tolerating her diabetic diet. The patient will be discharged on 5 more days of dexamethasone 6 mg p.o. daily. Because of the patient's D-dimer elevated she will be discharged on Xarelto 2.5 mg p.o. twice daily. The Xarelto should be continued for 1 month. The patient will be discharged on her regular diet as tolerated. She is also to have activity as tolerated. I recommended that the patient be in isolation for at least 1 more week. She should also have a COVID-19 negative test prior to returning to work. The patient has been hemodynamically stable and she has been discharged from acute hospitalization with the recommendations listed above. - Patient Instructions Diet: Diabetic Diet Activity: As Tolerated - Discharge Plan *PRESCRIPTION DRUG MONITORING PROGRAM REVIEWED*: Not Applicable *COPY OF PRESCRIPTION DRUG MONITORING REPORT IN PATIENT JULIANE: Not Applicable Prescriptions/Med Rec: dexAMETHasone [Dexamethasone] 6 mg PO DAILY@2300 #5 tablet Rivaroxaban [Xarelto] 2.5 mg PO BID #60 tablet Home Medications: Home Meds Allopurinol [Zyloprim] 100 mg PO DAILY 05/25/20 [History] Aspirin [Aspirin EC] 162 mg PO DAILY 05/25/20 [History] DULoxetine [Cymbalta] 60 mg PO DAILY 05/25/20 [History] Empagliflozin [Jardiance] 25 mg PO DAILY 05/25/20 [History] Liraglutide [Victoza] 1.8 ml INJECT DAILY 05/25/20 [History] Losartan/Hydrochlorothiazide [Losartan-HCTZ 50-12.5 MG] 1 tab PO DAILY 05/25/20 [History] Rosuvastatin [Crestor] 10 mg PO DAILY 05/25/20 [History] metFORMIN [Glucophage XR] 1,000 mg PO BID 05/25/20 [History] Levothyroxine [Synthroid] 100 mcg PO ACBREAKFAST tablet 05/30/20 [Rx] Melatonin 9 mg PO BEDTIME PRN tablet 05/30/20 [Rx] Rivaroxaban [Xarelto] 2.5 mg PO BID #60 tablet 05/30/20 [Rx] dexAMETHasone [Dexamethasone] 6 mg PO DAILY@2300 #5 tablet 05/30/20 [Rx] Oxygen Therapy Mode: Room Air Patient Handouts: COVID-19 Frequently Asked Questions, Diabetes Mellitus and Sick Day Management, COVID-19: How to Protect Yourself and Others - CDC, Prevent the Spread of COVID-19 if You Are Sick - CDC, Sepsis, Self Care, Adult Referrals: Sierra Silva, [employer] [Primary Care Provider] - (Please keep your previously scheduled appointment. ) - Discharge Summary/Plan Comment DC Time >30 min.: Yes - General Info Date of Service: 05/30/20 Admission Dx/Problem (Free Text: Hypoxia, COVID-19 Subjective Update: The patient is seen today at discharge. She is doing well. The patient is currently on room air. She has been tolerating her diet. The patient feels like she can go home. Functional Status: Reports: Pain Controlled, Tolerating Diet, Ambulating - Review of Systems General: Reports: No Symptoms HEENT: Reports: No Symptoms Pulmonary: Reports: No Symptoms Cardiovascular: Reports: No Symptoms Gastrointestinal: Reports: No Symptoms Genitourinary: Reports: No Symptoms Musculoskeletal: Reports: No Symptoms Skin: Reports: No Symptoms Neurological: Reports: No Symptoms Psychiatric: Reports: No Symptoms - Patient Data Vitals - Most Recent: Last Vital Signs Temp 36.4 C 05/30/20 07:44 Pulse 70 05/30/20 07:44 Resp 16 05/30/20 07:44 BP 109/74 05/30/20 07:44 Pulse Ox 93 L 05/30/20 07:44 Orthostatic Blood Pressure [ 72/51 Standing] Orthostatic Blood Pressure [ 123/61 Supine] Weight - Most Recent: 95.889 kg I&O - Last 24 hours: Intake & Output 05/29/20 05/30/20 05/30/20 22:59 06:59 14:59 Intake Total 2220 2100 Output Total 2600 2700 Balance -380 -600 Lab Results - Last 24 hrs: Laboratory Results - last 24 hr 05/29/20 05/29/20 05/29/20 Range/Units 05:28 11:18 17:00 WBC (3.98-10.04) K/mm3 RBC (3.98-5.22) M/mm3 Hgb (11.2-15.7) gm/dl Hct (34.1-44.9) % MCV (79.4-94.8) fl MCH (25.6-32.2) pg MCHC (32.2-35.5) g/dl RDW Std Deviation (36.4-46.3) fL Plt Count (182-369) K/mm3 MPV (9.4-12.3) fl Neut % (Auto) (34.0-71.1) % Lymph % (Auto) (19.3-51.7) % Walsh % (Auto) (4.7-12.5) % Eos % (Auto) (0.7-5.8) Baso % (Auto) (0.1-1.2) % Neut # (Auto) (1.56-6.13) K/mm3 Lymph # (Auto) (1.18-3.74) K/mm3 Walsh # (Auto) (0.24-0.36) K/mm3 Eos # (Auto) (0.04-0.36) K/mm3 Baso # (Auto) (0.01-0.08) K/mm3 Manual Slide Review D-Dimer, Quantitative (0.19-0.50) mg/L Sodium (136-145) mEq/L Potassium (3.5-5.1) mEq/L Chloride (98-107) mEq/L Carbon Dioxide (21-32) mEq/L Anion Gap (5-15) BUN (7-18) mg/dL Creatinine (0.55-1.02) mg/dL Est Cr Clr Drug Dosing mL/min Estimated GFR (MDRD) (>60) mL/min BUN/Creatinine Ratio (14-18) Glucose (80-115) mg/dL POC Glucose 201 H 291 H 205 H (80-115) mg/dL Calcium (8.5-10.1) mg/dL Total Bilirubin (0.2-1.0) mg/dL AST (15-37) U/L ALT (14-59) U/L Alkaline Phosphatase (46-116) U/L Total Protein (6.4-8.2) g/dl Albumin (3.4-5.0) g/dl Globulin gm/dL Albumin/Globulin Ratio (1-2) 05/29/20 05/30/20 05/30/20 Range/Units 21:12 05:55 05:55 WBC 6.42 (3.98-10.04) K/mm3 RBC 4.31 (3.98-5.22) M/mm3 Hgb 12.5 (11.2-15.7) gm/dl Hct 39.6 (34.1-44.9) % MCV 91.9 (79.4-94.8) fl MCH 29.0 (25.6-32.2) pg MCHC 31.6 L (32.2-35.5) g/dl RDW Std Deviation 49.7 H (36.4-46.3) fL Plt Count 154 L (182-369) K/mm3 MPV 12.0 (9.4-12.3) fl Neut % (Auto) 71.2 H (34.0-71.1) % Lymph % (Auto) 15.4 L (19.3-51.7) % Walsh % (Auto) 7.0 (4.7-12.5) % Eos % (Auto) 0 L (0.7-5.8) Baso % (Auto) 0.2 (0.1-1.2) % Neut # (Auto) 4.57 (1.56-6.13) K/mm3 Lymph # (Auto) 0.99 L (1.18-3.74) K/mm3 Walsh # (Auto) 0.45 H (0.24-0.36) K/mm3 Eos # (Auto) 0.00 L (0.04-0.36) K/mm3 Baso # (Auto) 0.01 (0.01-0.08) K/mm3 Manual Slide Review Normal smear D-Dimer, Quantitative 0.91 H (0.19-0.50) mg/L Sodium (136-145) mEq/L Potassium (3.5-5.1) mEq/L Chloride (98-107) mEq/L Carbon Dioxide (21-32) mEq/L Anion Gap (5-15) BUN (7-18) mg/dL Creatinine (0.55-1.02) mg/dL Est Cr Clr Drug Dosing mL/min Estimated GFR (MDRD) (>60) mL/min BUN/Creatinine Ratio (14-18) Glucose (80-115) mg/dL POC Glucose 186 H (80-115) mg/dL Calcium (8.5-10.1) mg/dL Total Bilirubin (0.2-1.0) mg/dL AST (15-37) U/L ALT (14-59) U/L Alkaline Phosphatase (46-116) U/L Total Protein (6.4-8.2) g/dl Albumin (3.4-5.0) g/dl Globulin gm/dL Albumin/Globulin Ratio (1-2) 05/30/20 05/30/20 Range/Units 05:55 06:47 WBC (3.98-10.04) K/mm3 RBC (3.98-5.22) M/mm3 Hgb (11.2-15.7) gm/dl Hct (34.1-44.9) % MCV (79.4-94.8) fl MCH (25.6-32.2) pg MCHC (32.2-35.5) g/dl RDW Std Deviation (36.4-46.3) fL Plt Count (182-369) K/mm3 MPV (9.4-12.3) fl Neut % (Auto) (34.0-71.1) % Lymph % (Auto) (19.3-51.7) % Walsh % (Auto) (4.7-12.5) % Eos % (Auto) (0.7-5.8) Baso % (Auto) (0.1-1.2) % Neut # (Auto) (1.56-6.13) K/mm3 Lymph # (Auto) (1.18-3.74) K/mm3 Walsh # (Auto) (0.24-0.36) K/mm3 Eos # (Auto) (0.04-0.36) K/mm3 Baso # (Auto) (0.01-0.08) K/mm3 Manual Slide Review D-Dimer, Quantitative (0.19-0.50) mg/L Sodium 141 (136-145) mEq/L Potassium 4.4 (3.5-5.1) mEq/L Chloride 108 H (98-107) mEq/L Carbon Dioxide 21 (21-32) mEq/L Anion Gap 16.4 H (5-15) BUN 26 H (7-18) mg/dL Creatinine 0.7 (0.55-1.02) mg/dL Est Cr Clr Drug Dosing 79.01 mL/min Estimated GFR (MDRD) > 60 (>60) mL/min BUN/Creatinine Ratio 37.1 H (14-18) Glucose 205 H (80-115) mg/dL POC Glucose 184 H (80-115) mg/dL Calcium 9.3 (8.5-10.1) mg/dL Total Bilirubin 0.6 (0.2-1.0) mg/dL AST 56 H (15-37) U/L ALT 49 (14-59) U/L Alkaline Phosphatase 144 H (46-116) U/L Total Protein 6.9 (6.4-8.2) g/dl Albumin 2.8 L (3.4-5.0) g/dl Globulin 4.1 gm/dL Albumin/Globulin Ratio 0.7 L (1-2) Med Orders - Current: Current Medications Acetaminophen (Tylenol) 650 mg PO Q4H PRN PRN Reason: Fever Greater Than 101 Allopurinol (Zyloprim) 100 mg PO DAILY [facility] Last Admin: 05/30/20 08:19 Dose: 100 mg Documented by: Alogliptin Benzoate (Alogliptin) 25 mg PO DAILY [facility] Last Admin: 05/30/20 08:18 Dose: 25 mg Documented by: Aspirin (Halfprin) 162 mg PO DAILY [facility] Last Admin: 05/30/20 08:18 Dose: 162 mg Documented by: Dexamethasone (Dexamethasone) 6 mg PO DAILY@2300 [facility] Stop: 06/03/20 23:01 Last Admin: 05/29/20 22:00 Dose: 6 mg Documented by: Dextrose/Water (Dextrose 50% In Water) 50 ml IV ASDIRECTED PRN PRN Reason: Hypoglycemia Dextrose/Water (Dextrose 50% In Water) 50 ml IVPUSH ASDIRECTED PRN PRN Reason: Hypoglycemia Duloxetine HCl (Cymbalta) 60 mg PO DAILY [facility] Last Admin: 05/30/20 08:19 Dose: 60 mg Documented by: Glucagon (Glucagen) 1 mg IM ASDIRECTED PRN PRN Reason: Hypoglycemia Insulin Human Lispro (Humalog) 0 unit SUBCUT QIDACANDBED [facility]; Protocol Last Admin: 05/30/20 06:48 Dose: 1 unit Documented by: Levothyroxine Sodium (Synthroid) 100 mcg PO ACBREAKFAST [facility] Last Admin: 05/30/20 05:57 Dose: 100 mcg Documented by: Melatonin (Melatonin) 9 mg PO BEDTIME PRN PRN Reason: Sleep Last Admin: 05/27/20 22:30 Dose: 9 mg Documented by: Empagliflozin [ Jardiance] 25 Mg Own Med 25 mg PO DAILY [facility] Last Admin: 05/30/20 08:19 Dose: 25 mg Documented by: Ondansetron HCl (Zofran) 4 mg IV Q4H PRN PRN Reason: Nausea/Vomiting Oxycodone HCl (Oxycodone) 5 mg PO Q4H PRN PRN Reason: Pain (moderate 4-6) Rivaroxaban (Xarelto) 10 mg PO DAILY [facility] Last Admin: 05/30/20 08:18 Dose: 10 mg Documented by: Rosuvastatin Calcium (Crestor) 10 mg PO DAILY [facility] Last Admin: 05/30/20 08:19 Dose: 10 mg Documented by: Sodium Chloride ([place] Nasal [place]) 0 ml NASBOTH Q2H PRN PRN Reason: nasal congestion Last Admin: 05/28/20 16:18 Dose: 1 spray Documented by: Discontinued Medications Dexamethasone (Dexamethasone) 6 mg PO ONETIME ONE Stop: 05/25/20 23:16 Last Admin: 05/26/20 02:23 Dose: 6 mg Documented by: Remdesivir 200 mg/ Sodium (Chloride) 250 mls @ 250 mls/hr IV ONETIME ONE Stop: 05/25/20 21:45 Last Admin: 05/26/20 03:22 Dose: 250 mls/hr Documented by: Remdesivir 100 mg/ Sodium (Chloride) 100 mls @ 100 mls/hr IV DAILY [facility] Stop: 05/29/20 09:59 Ceftriaxone Sodium 2 gm/ (Sodium Chloride) 100 mls @ 200 mls/hr IV BEDTIME [facility] Stop: 05/29/20 21:29 Last Admin: 05/29/20 21:09 Dose: 200 mls/hr Documented by: Ceftriaxone Sodium 2 gm/ (Sodium Chloride) 100 mls @ 200 mls/hr IV Q24H [facility] Sodium Chloride (Normal Saline) 100 mls @ 25 mls/hr IV ASDIRECTED [facility] Last Admin: 05/26/20 03:15 Dose: 25 mls/hr Documented by: Remdesivir 100 mg/ Sodium (Chloride) 100 mls @ 100 mls/hr IV Q24H [facility] Stop: 05/30/20 04:29 Last Admin: 05/30/20 04:11 Dose: 100 mls/hr Documented by: Levothyroxine Sodium (Synthroid) 100 mcg PO ACBREAKFAST [facility] - Exam Quality Assessment: Denies: Supplemental Oxygen General: Reports: Alert, Oriented, Cooperative, No Acute Distress HEENT: Reports: Pupils Equal, Pupils Reactive, EOMI, Mucous Membr. Moist/[place] Neck: Reports: Supple, Trachea Midline Lungs: Reports: Clear to Auscultation, Normal Respiratory Effort Cardiovascular: Reports: Regular Rate, Regular Rhythm GI/Abdominal Exam: Normal Bowel Sounds, Soft, Non-Tender, No Distention (Female) Exam: Deferred Rectal (Female) Exam: Deferred Back Exam: Reports: Normal Inspection, Full Range of Motion Extremities: Normal Inspection, Normal Range of Motion, No Pedal Edema Skin: Reports: Warm, Dry, Intact Neurological: Reports: No New Focal Deficit, Normal Gait Psy/Mental Status: Reports: Alert, Normal Affect, Normal Mood
== END 2020-05-30 11:06 | disposition home or self-care (01) | DRG 177 ==
LOC: JD.ED 18:53 → SUPCPDRO 18:53 → JD.MS 23:13
PROVIDERS: ADMIT Family Medicine; ATTEND Family Medicine
PROC: XW033E5 Introduction of Remdesivir Anti-infective into Peripheral Vein, Percutaneous Approach, New Technology Group 5 (ICD-10-PCS; principal; 2020-05-25)
PROC: XW13325 Transfusion of Convalescent Plasma (Nonautologous) into Peripheral Vein, Percutaneous Approach, New Technology Group 5 (ICD-10-PCS; 2020-05-25)
PROC: 8E0ZXY6 Isolation (ICD-10-PCS; 2020-05-25)
DX: U07.1 COVID-19 (principal); J12.89 Other viral pneumonia; E11.9 Type 2 diabetes mellitus without complications; D69.59 Other secondary thrombocytopenia; E78.00 Pure hypercholesterolemia, unspecified; I10 Essential (primary) hypertension; M10.9 Gout, unspecified; M79.7 Fibromyalgia; E03.9 Hypothyroidism, unspecified; E66.9 Obesity, unspecified; Z98.51 Tubal ligation status; Z79.82 Long term (current) use of aspirin; Z79.84 Long term (current) use of oral hypoglycemic drugs; Z79.890 Hormone replacement therapy; Z88.8 Allergy status to other drugs, medicaments and biological substances; E88.09 Other disorders of plasma-protein metabolism, not elsewhere classified
CPT/HCPCS: 36415; 36430; 71045; 80053; 82728; 82962; 83036; 83615; 83735; 83880; 84100; 84145; 84443; 84484; 85007; 85025; 85027; 85379; 85610; 86140; 86900; 86901; 87804; 93005; 94667; 94668; 94761; 94762; 99285; 99285-25; A9270-GY; J0696; J1815-GY; J7050; J8540; P9017